=== PATIENT | male | born 1955 | race Caucasian/White ===

== ENCOUNTER 2023-10-24 07:59 | Outpatient (OUT) | payer MEDICARE, SELFPAY ==
--- NOTE | 2023-10-24 08:06 | ECG_ITS ---
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
--- NOTE | 2023-10-24 08:47 | P.GSHP_ITS ---
History of Present Illness History of Present Illness Chief complaint: elevated psa Narrative: Patient presents for preadmission testing. The patient states he had an elevated PSA and an in-office prostate biopsy which was suspicious. The patient states he has no urinary complaints. He denies nausea, vomiting, abdominal pain, difficulty starting urinary stream, incomplete bladder emptying, dysuria, hematuria, or any other complaints. Review of Systems ROS Narrative REVIEW OF SYSTEMS: Negative except as stated in HPI, ten or more systems reviewed. Constitutional: No fever , chills, weakness ENT: No sore throat or epistaxis Cardiovascular: No edema, chest pain, palpitations, or activity intolerance Respiratory: No shortness of breath, cough, or wheezing Musculoskeletal: No joint pain or swelling Gastrointestinal: No abdominal pain, constipation, diarrhea, or vomiting Genitourinary: No dysuria or hematuria Neurological: No numbness, tingling, weakness, or headache Psychiatric: No mood changes [facility] Medical History (Updated 10/24/23 @ 08:49 by Radha Land NP) Abnormal prostate biopsy ?R89.7 - Abnormal histological findings in specimens from other organs, systems and tissues (ICD-10) Tear meniscus knee ?S83.209A - Unspecified tear of unspecified meniscus, current injury, unspecified knee, initial encounter (ICD-10) COVID-19 ?U07.1 - COVID-19 (ICD-10) Vertigo ?R42 - Dizziness and giddiness (ICD-10) High cholesterol ?E78.00 - Pure hypercholesterolemia, unspecified (ICD-10) Elevated PSA ?R97.20 - Elevated prostate specific antigen [PSA] (ICD-10) Diabetes ?E11.9 - Type 2 diabetes mellitus without complications (ICD-10) Postoperative nausea and vomiting ?R11.2 - Nausea with vomiting, unspecified (ICD-10) ?Z98.890 - Other specified postprocedural states (ICD-10) Surgical History (Updated 10/24/23 @ 08:46 by Radha Land NP) H/O varicose vein ligation and stripping ?Z98.890 - Other specified postprocedural states (ICD-10) History of wisdom tooth extraction ?K08.409 - Partial loss of teeth, unspecified cause, unspecified class (ICD- 10) History of arthroscopy of knee ?Z98.890 - Other specified postprocedural states (ICD-10) History of colonoscopy ?Z98.890 - Other specified postprocedural states (ICD-10) Hx of prostate biopsy ?Z98.890 - Other specified postprocedural states (ICD-10) Family History (Updated 10/24/23 @ 08:27 by Radha Land NP) Other Family history of coronary artery disease Family history of heart disease Family history of prostate cancer Social History (Updated 10/24/23 @ 08:18 by Radha Land NP) Within the past year, how often did you have a drink containing alcohol: monthly or less Smoking status: Never smoker Non-prescribed substance use: denies use Previous occupational history: Retired Highest level of school completed/degree received: Bachelor's degree Meds Home Medications and Allergies Home Medications Medication Instructions Recorded Confirmed Type atorvastatin 10 mg tablet 10 mg PO DAILY 10/24/23 10/24/23 History glipizide 2.5 mg tablet, extended 2.5 mg PO DAILY 10/24/23 10/24/23 History release 24 hr metformin 500 mg tablet,extended 1,000 mg PO BID 10/24/23 10/24/23 History release 24 hr qzmygxkg-fc-vexab 300 mcg-K 60 1 tab PO DAILY 10/24/23 10/24/23 History mcg-lycop 600 mcg-lutein 300 mcg tablet (Centrum Silver Ultra Men's) Allergies Allergy/AdvReac Type Severity Reaction Status Date / Time Sulfa (Sulfonamide Allergy Hives Verified 10/24/23 08:16 Antibiotics) Exam Narrative Exam Narrative: Constitutional: Awake, alert, comfortable, well-appearing, nontoxic, interactive, vital signs as charted Head: Normocephalic, atraumatic Neck: Supple, normal appearance, normal range of motion, no meningeal signs, no lymphadenopathy Respiratory: No respiratory distress, breath sounds clear Cardiovascular: Regular rate and rhythm, strong and regular heart tones Abdomen: Nontender, normal bowel sounds, soft, no CVA tenderness Musculoskeletal: Normal gait, no swelling or edema Skin: No rashes or induration, no lesions, only visible skin inspected Neuro: No neurological deficits, normal sensation Psychiatric: Oriented ?3, normal affect Assessment and Plan Assessment and Plan (1) Elevated PSA: (2) Abnormal prostate biopsy: Plan TRUS/biopsy scheduled with Dr. Romero 11/06/2023.
[2023-10-24 09:16] LABS: Basophils Absolute Auto 0.1 10^3/uL (0.0-0.1); Basophils Percent Auto 1.3 % (0.2-2.0); Eosinophils Absolute Auto 0.2 10^3/uL (0.0-0.7); Eosinophils Percent Auto 4.2 % (0.9-7.0); Hematocrit 43.1 % (42.0-54.0); Hemoglobin 14.4 g/dL (14.0-18.0); Immature Granulocytes Abs Auto 0.02 10^3/uL (0.00-0.03); Immature Granulocytes Pct Auto 0.4 % (0.0-0.5); Lymphocytes Absolute Auto 1.5 10^3/uL (1.2-3.8); Lymphocytes Percent Auto 27.6 % (20.5-60.0); Mean Corpuscular HGB Conc 33.4 g/dL (29.9-35.2); Mean Corpuscular Hemoglobin 30.6 pg (25.9-34.0); Mean Corpuscular Volume 91.5 fL (80.0-94.0); Mean Platelet Volume 10.6 fL (9.5-13.5); Monocytes Absolute Auto 0.4 10^3/uL (0.3-0.8); Monocytes Percent Auto 7.5 % (1.7-12.0); Neutrophils Absolute Auto 3.2 10^3/uL (1.4-6.5); Platelet Count 205 10^3/uL (150-450); Red Blood Count 4.71 10^6/uL (4.70-6.10); Red Cell Distribution Width 11.9 % (11.0-15.0); White Blood Count 5.5 10^3/uL (4.0-11.0)
[2023-10-24 09:17] LABS: Anion Gap 9.3; Calcium 9.1 mg/dL (8.5-10.1); Carbon Dioxide 31.5 mmol/L (21.0-32.0); Chloride 101 mmol/L (98-107); Estimated GFR (African America >60 (>=60); Estimated GFR (Non-African Ame >60 (>=60); Glucose 251 mg/dL (74-106); Potassium 3.8 mmol/L (3.5-5.1); Sodium 138 mmol/L (136-145)
[2023-10-24 09:33] LABS: INR 0.95; Partial Thromboplastin Time 26.2 sec (22.3-36.2); Prothrombin Time 10.1 sec (9.0-11.6)
== END 2023-10-24 08:00 | disposition home or self-care (01) ==
LOC: PST 08:00
PROVIDERS: PCP Family Medicine; Visit Provider Urology
DX: Z01.810 Encounter for preprocedural cardiovascular examination (principal); Z01.812 Encounter for preprocedural laboratory examination; Z01.818 Encounter for other preprocedural examination; R97.20 Elevated prostate specific antigen [PSA]
CPT/HCPCS: 80048; 85025; 85610; 85730; 93005; G0463

== ENCOUNTER 2023-11-06 06:59 | Day surgery (SDC) | payer MEDICARE, SELFPAY ==
[2023-10-24 08:43] VITALS: BP 140/90; PULSE 89; RESP 14; TEMP 36.2; O2SAT 99; BMI 22.7
--- OUTSIDE RECORDS SUMMARY | 2023-11-06 07:02 | XMS_ITS | CCD ---
Author Name Unknown Address [address] [place] [address] Organization [facility] Care Team Providers Care Computer Service Technician Name Role Phone JESUS LINDA Primary Care Physician [phone] CAR[address] ., DR JESUS Armenta Primary Care Unavailable LINDA ., DR JESUS Armenta Attending Unavailable LINDA ., DR JESUS Armenta Admitting Unavailable LINDA ., DR JESUS Armenta Primary Care Unavailable DIANNE ., GABINO Attending Unavailable JEROMY .NUNU Consulting Unavailable DIANNE ., GABINO Admitting Unavailable XIOMARA RALPH Consulting Unavailable LINDA ., DR JESUS Armenta Primary Care Unavailable FIOR, DR MARYAM Bernal Consulting Unavailable LINDA ., DR JESUS Armenta Attending Unavailable LINDA ., DR JESUS Armenta Admitting Unavailable LINDA ., DR JESUS Armenta Consulting Unavailable LINDA ., DR JESUS Armenta Primary Care Unavailable LINDA ., DR JESUS Armenta Consulting Unavailable LINDA ., DR JESUS Armenta Attending Unavailable LINDA ., DR JESUS Armenta Admitting Unavailable LINDA ., DR JESUS Armenta Primary Care Unavailable LINDA ., DR JESUS Armenta Consulting Unavailable LINDA ., DR JESUS Armenta Attending Unavailable LINDA ., DR JESUS Armenta Admitting Unavailable LINDA ., DR JESUS Armenta Primary Care Unavailable LINDA ., DR JESUS Armenta Consulting Unavailable LINDA ., DR JESUS Armenta Attending Unavailable LINDA ., DR JESUS Armenta Admitting Unavailable LINDA ., DR JESUS Armenta Primary Care Unavailable LINDA ., DR JESUS Armenta Attending Unavailable LINDA ., DR JESUS Armenta Consulting Unavailable LINDA ., DR JESUS Armenta Admitting Unavailable NETO GAITAN Consulting Unavailable Shireen Bahena Primary Care Physician MD Jimmy Romero Attending Provider Yamil Imterry Attending Unavailable Kwadwo Loboad Admitting Unavailable Dada Weston Primary Care Unavailable Jimmy Romero Attending Unavailable Jimmy Romero Admitting Unavailable Dada Weston. Primary Care Physician [phone] Dada Weston MD Primary Care Provider JR. KEELY, ANTWAN Olguin Attending Unavaila casimiro FOX JR., ANTWAN Olguin Referring Unavaila casimiro FOX JR., ANTWAN Olguin Attending Unavaila Jimmy Stanford Attending Unavailable Dada Weston Attending Unavailable Dada Weston Admitting Unavailable Dada Weston Attending Unavailable Dada Weston Attending Unavailable Jimmy ROMERO Attending Unavailable ROMEROJimmy Attending Unavailable ROMEROJimmy Attending Unavailable Dada Weston Attending Unavailable Dada Weston Attending Unavailable Dada Weston Attending Unavailable Dada Weston Attending Unavailable Shruti, Shireen Godinez Attending Unavailable Shruti, Shireen Godinez Attending Unavailable Maryam DUARTE Attending Unavailable Shruti, Shireen Godinez Attending Unavailable Dada Weston Attending Unavailable Dada Weston Attending Unavailable Shruti, Shireen Godinez Attending Unavailable Jimmy ROMERO Attending Unavailable Jimmy ROMERO Attending Unavailable Dada Weston Admitting Unavailable Dada Weston Attending Unavailable Allergies Allergy Classification Reported Allergen(s) Allergy Type Date of Onset Reaction(s) Facility (5 sources) Sulfamethoxazole ; Translations: [sulfamethoxazol e] Drug Allergy [facility] (1 source) Sulfonamides (Antibiotic) Drug allergy (disorder) 4 [facility] (2 sources) Sulfonamides (Antibiotic); Translations: [Sulfa (Sulfonamide Antibiotics)] Allergy to substance 3 [facility] (3 sources) Sulfonamides (Antibiotic) Drug Allergy 4 Hives, Itching [facility] Medications Current Medications Medication Drug Class(es) Dates Sig (Normalized) Sig (Original) amoxicillin 500 mg oral capsule (1 source) Penicillin-class Antibacterial Start: 05-16-2023 End: 05-23-2023 take 1 capsule by mouth three times daily amoxicillin 500 mg Cap 500 mg = 1 cap(s), Oral, TID, X 7 day(s), # 21 cap(s), Refills(s) 0, Pharmacy: [facility], 172, cm, 05/14/23 10:47:00 EDT, Height/Length Dosing, 68.6, kg, 05/14/23 10:47:00 EDT, Weight Dosing Start Date: 05/16/23 Stop Date: 05/23/23 Status: Ordered Ascorbic Acid (4 sources) Vitamin C Start: 06-12-2020 Vitamin C Daily, Refills(s) 0 Start Date: 06/12/20 Status: Ordered atorvastatin 10 mg oral tablet (8 sources) HMG-CoA Reductase Inhibitor Start: 06-25-2018 atorvastatin (Lipitor) 10 MG tablet Take 10 mg by mouth 0 02/04/2023 Active cefuroxime 500 mg oral tablet (1 source) Cephalosporin Antibacterial Start: 05-14-2023 End: 05-21-2023 take 1 tablet by mouth twice daily cefuroxime 500 mg oral tablet 500 mg = 1 tab(s), Oral, BID, X 7 day(s), # 14 tab(s), Refills(s) 0, Pharmacy: [facility], 172, cm, 05/14/23 10:47:00 EDT, Height/Length Dosing, 68.6, kg, 05/14/23 10:47:00 EDT, Weight Dosing Start Date: 05/14/23 Stop Date: 05/21/23 Status: Ordered Centrum Silver oral tablet (4 sources) Start: 06-25-2018 take 1 tablet by mouth once daily Centrum Silver oral tablet 1 tab(s), Oral, Daily, Refill(s) 0, Prophylaxis Start Date: 06/25/18 Status: Ordered fluticasone propionate 0.05 mg/actuat metered dose nasal spray (6 sources) Corticosteroid Start: 05-14-2023 Flonase Allergy Relief 50 MCG/ACT nasal spray Administer into affected nostril(s) 0 05/14/2023 Active Start: 05-14-2023 take 2 spray(s) nasa l route once daily Flonase 0.05 mg/inh [place] 2 spray(s), Nasal, Daily, 16 gram, Refill(s) 0, each nostril, [facility], 172, cm, 05/14/23 10:47:00 EDT, Height/Length Dosing, 68.6, kg, 05/14/23 10:47:00 EDT, Weight Dosing Start Date: 05/14/23 Status: Ordered glipiZIDE er 2.5 mg 24 hr extended release oral tablet (8 sources) Sulfonylurea Start: 02-04-2023 take 1 tablet by mouth every twenty-four hours glipiZIDE XL (Glucotrol XL) 2.5 MG 24 hr tablet Take 2.5 mg by mouth 0 02/04/2023 Active Start: 06-11-2021 take 1 tablet by danyel once daily glipiZIDE 2.5 mg ER Tab 2.5 mg = 1 tab(s), Oral, Daily, # 90 tab(s), Refills(s) 3, Pharmacy: [facility], 176, cm, 06/02/23 10:01:00 EDT, Height/Length Dosing, 68.6, kg, 06/02/23 10:01:00 EDT, Weight Dosing Start Date: 07/01/23 Status: Ordered meloxicam 15 mg oral tablet (7 sources) Nonsteroidal Anti-inflammatory Drug Start: 02-13-2023 Mobic 15 MG table t Take 15 mg by mouth 0 02/13/2023 Active Start: 06-17-2022 take 15 mg by mouth once daily Mobic 15 mg, Oral, Daily Start Date: 06/17/22 Status: Ordered metFORMIN hydrochloride 500 mg oral tablet (8 sources) Biguanide Start: 07-01-2023 take 3 tablets by mouth once daily metformin 500 mg Tab 1,500 mg = 3 tab(s), Oral, Daily, # 270 tab(s), Refills(s) 3, Pharmacy: [facility], 176, cm, 06/02/23 10:01:00 EDT, Height/Length Dosing, 68.6, kg, 06/02/23 10:01:00 EDT, Weight Dosing Start Date: 07/01/23 Status: Ordered Start: 02-04-2023 metFORMIN (Glu cophage) 500 MG tablet 500 mg 0 02/04/2023 Active Start: 06-25-2018 take 3 tablets by mo [facility] once daily metformin 500 mg Tab 1,500 mg = 3 tab(s), Oral, Daily, Refills(s) 0, Blood glucose Start Date: 06/25/18 Status: Ordered Multiple Vitamins-Minerals (Centrum Silver 50+Men) tablet (3 sources) Multiple Vitamin s-Minerals (Centrum Silver 50+Men) tablet as directed Orally 0 Active Fl-Lmv-Swgto-M2-Dgkjozi-Hzgk in (Centrum Silver Men) 300-600-300 mcg Tablet (1 source) Start: 02-04-2023 take 300-600 tablets by mouth once daily Vm-Qow-Kjuwm-K8-Svpktcf-Jfs ein (Centrum Silver Men) 300-600-300 mcg Tablet Active 1 TAB PO Daily 2023 11:00pm Psyllium (3 sources) Start: 03-31-2023 Metamucil See Instructions, One tablespoon ful in a glass of water once a day, Refills(s) 0 Start Date: 03/31/23 Status: Ordered Psyllium (Metamucil) Packet (1 source) Start: 02-04-2023 take 8 [oz_av] by mouth three times daily Psyllium (Metamucil) Packet Active 1 PACKET PO Three times daily 2023 11:00pm mix into at least 8 oz of water or juice before administering Completed/Discontinued Medications Medication Drug Class(es) Dates Sig (Normalized) Sig (Original) 1 ml methylPREDNISolone acetate 40 mg/ml injection (4 sources) Corticosteroid Start: 4 End: 4 methylPREDNISolone acetate (DEPO-Medrol) injection 40 mg Problems Active Problems Problem Classification Problem Date Documented Date Episodic/Chronic Diabetes mellitus with complications (5 sources) Type 2 diabetes mellitus with unspecified complications; Translations: [TYPE 2 DM W/UNS COMPLICATIONS] Onset: 05-29-2022 Chronic Diabetes mellitus without complication (5 sources) Diabetes mellitus; Translations: [Type 2 diabetes mellitus without complications] Onset: 03-01-2022 06-25-2018 Chronic Diabetes mellitus without complication (4 sources) Glycosuria 06-14-2019 Episodic Disorders of lipid metabolism (10 sources) Hypercholesterolemia; Translations: [Hyperlipidemia] Onset: 03-01-2022 11-05-2013 Chronic E Codes: Struck by; against (1 source) Striking against or struck by other objects, initial encounter; Translations: [STRIKING AGNST/STRUCK OTH OBJ INIT] Onset: 01-06-2023 Episodic Esophageal disorders (4 sources) Gastroesophageal reflux disease; Translations: [Gastroesophageal reflux disease without esophagitis] 06-25-2018 Chronic Fracture of lower limb (1 source) Nondisplaced fracture of proximal phalanx of left great toe, initial encounter for closed fracture; Translations: [NDSPL FX PRX PHAL LT GT TOE INIT CL] Onset: 01-06-2023 Episodic Genitourinary symptoms and ill-defined conditions (5 sources) Microscopic hematuria; Translations: [Other symptoms and signs involving the genitourinary system] Onset: 07-25-2023 03-10-2019 Episodic Hyperplasia of prostate (6 sources) Benign prostatic hypertrophy with outflow obstruction; Translations: [Benign prostatic hyperplasia with lower urinary tract symptoms] Onset: 06-17-2022 Chronic Joint disorders and dislocations; trauma-related (4 sources) Other tear of medial meniscus, current injury, right knee, initial encounter; Translations: [Tear of meniscus of knee] Onset: 08-21-2022 03-31-2023 Episodic Osteoarthritis (4 sources) Unilateral primary osteoarthritis, right knee; Translations: [UNI PRIM OSTEOARTHRITIS RT KNEE] Onset: 06-26-2022 Chronic Other aftercare (1 source) Other long term acute care registered nurse (current) drug therapy; Translations: [OTH CUSTOMER OPERATIONS INTERN CURRENT DRUG THERAPY] Onset: 01-06-2023 Episodic Other aftercare (1 source) care home (current) use of oral hypoglycemic drugs; Translations: [CUSTOMER OPERATIONS INTERN USE ORAL HYPOGLYCEMIC DX] Onset: 01-06-2023 Episodic Other injuries and conditions due to external causes (3 sources) Unspecified injury of left foot, initial encounter; Translations: [UNSPECIFIED INJURY LT FOOT INITIAL] Onset: 01-05-2023 Episodic Other male genital disorders (1 source) Dysplasia of prostate; Translations: [Atypical small acinar proliferation of prostate] Onset: 07-25-2023 Episodic Other male genital disorders (2 sources) Atypical small acinar proliferation of prostate 07-25-2023 Episodic Other male genital disorders (2 sources) Disorder of prostate 07-25-2023 Episodic Other non-traumatic joint disorders (2 sources) Pain in left knee; Translations: [Pain in joint, lower leg] 09-24-2023 Episodic Other screening for suspected conditions (not mental disorders or infectious disease) (7 sources) Raised prostate specific antigen; Translations: [Elevated prostate specific antigen [PSA]] Onset: 06-17-2022 Episodic Other upper respiratory infections (3 sources) Sinusitis 05-14-2023 Chronic Otitis media and related conditions (3 sources) Otitis media 05-14-2023 Episodic Residual codes; unclassified (2 sources) Family history of cancer; Translations: [Family history of malignant neoplasm of prostate] Onset: 06-17-2022 Episodic Residual codes; unclassified (4 sources) Family history of prostate cancer 06-14-2019 Episodic Unclassified (4 sources) Uneven venous ectasia (morphologic abnormality) 11-05-2013 Unclassified (3 sources) Patient encounter status 02-13-2023 Unclassified (1 source) Encounter for screening for malignant neoplasm of colon; Translations: [Encounter for screening for malignant neoplasm of colon] Onset: 02-04-2023 Past or Other Problems Problem Classification Problem Date Documented Da te Episodic/Chronic Other male genital disorders (4 sources) Disorder of prostate, unspecified; Translations: [DISORDER OF PROSTATE UNSPECIFIED] Onset: 05-27-2022 Episodic Other non-traumatic joint disorders (4 sources) Pain in right knee; Translations: [PAIN IN RIGHT KNEE] Onset: 08-13-2022 Episodic Results Test Name Value Interpretation Reference Range Facil ity Retail - Clinical Noteon Retail - Clinical Note [id number]#1.0 0TIFF Normal [facility] ECG 12-Leadon 10-27-2023 ECG 12-Lead [id number]#1.0 0TIFF Normal [facility] Lab Reportson 10-24-2023 Lab Reports [id number]#1.0 0TIFF Normal [facility] Reminderson 10-24-2023 Reminders - From: Kimberly Lin To: EU - Recalls Romero; Cc: Kimberly Lin; Sent: 07/25/2023 10:39:02 EST Show up: 10/24/2023 10:38:00 EST Subject: TRUS/BX Due Date/Time: 11/10/2023 10:39:00 EDT Reminder/Recall Patient needs repeat TRUS/BX (mac). He wants it at [facility] in Patient sched for 11/06/23 at [facility] Consultation Noteon 10-16-19 Consultation Note [id number]#1.0 0TIFF [facility] Consent for Procedure/Surger yon 10-07-2023 Consent for Procedure/Surgery [id number] 0TIFF [facility] Ambulatory Visit Summaryon 0 09-29-2023 Ambulatory Visit Summary SANKET LOZADA :1955 Visit Date:09/29/2023 Ambulatory Visit Instructions Your Diagnosis Hypercholesterolemia Type 2 diabetes mellitus without complication, without long-term current use of insulin BMI 21.0-21.9, adult Nonsmoker Your Care Team Attending Physician - Dada Weston MD Primary Care Physician - Dada Weston MD This Is Your Medications List metformin (Glucophage XR 500 mg Tab-ER) Contact prescribing physician if questions or concerns Misc Prescription (Misc DME Prescription) Misc Prescription (Misc DME Prescription) ascorbic acid (Vitamin C) atorvastatin (atorvastatin 10 mg Tab) fluticasone nasal (Flonase 0.05 mg/inh [place]) meloxicam (Mobic 15 mg Tab) multivitamin with minerals (Centrum Silver oral tablet) psyllium (Metamucil) [Image Removed: STOP]Stop taking these medications glipiZIDE (glipiZIDE 2.5 mg ER Tab) Procedures Performed Transrectal biopsy of prostate using ultrasound guidance (07/11/2023), Colonoscopy (01/2023), Varicose vein (07/10/2018), varicose vein surgery- EVLT LGSV (12/01/2017), Stripping and ligation of great saphenous vein (01/28/2012), Arthroscopy of knee (1998), Extraction of wisdom tooth, Varicose veins. Discharge Vitals Temperature (Temporal Artery) 36.9 ?C Heart Rate (Peripheral) 90 Respiratory Rate 16 Blood Pressure 136/82 Height 176 cm Height 69 in Weight 67.4 kg Weight 148.28 lb BMI 21.76 What to do next Scheduled Follow-Up Appointments Friday. 2023 8:20 AM EDT With: Where: [facility] Invalid Interpretation Code [address] [place] [address]- \.br\ Friday 8:00 AM EDT \.br\ With:\.br\ Where: [facility] Office/Clini c Noteon 09-29-2023 Family Medicine Office/Clinic Note HPI Staff Sanket is a 68 year old male presenting for 6 month follow up dm, gerd, cholesterol Do you have any of the following symptoms? Foot Exam: none Eye Exam: UTD Last A1C: Hgb A1C %: 7.3 % High (08/20/23 08:21:00) Statin: atorvastatin 10mg Here for follow up on GERD. Melena? no Dysphagia? no Weight loss? no Persistent vomiting? no Have you ever had an EGD? no Refill needed?: no Patient is here for follow up on hyperlipidemia: Do you have side effects from the medication? no Refill needed?: no Yearly Lipid labs: 05/19/23 flu: UTD 05/30/23 questions/concerns: discuss his A1C and his diabetic meds Okay to use boost glucose control would help the A1C and his weight. Biopsy results prostate, would like to know if you've seen it discuss life screening from 2018, the aneurysm issue, family history History of Present Illness Here for follow up - BS are doing well in the low 100's. - Given up sweets - May have some ice cream Review of Systems PHQ Score Initial Depression Screen Score: 0 SCORE Physical Exam Vitals & Measurements T: 36.9 ?C(Temporal Artery) HR: 90(Peripheral) RR: 16 BP: 136/82 SpO2: 98% HT: 69 in HT: 176 cm WT: 67.4 kg WT: 148.28 lb BMI: 21.76 General: alert, no acute distress ENMT: oral mucosa moist, Cardiovascular: regular rate and rhythm, normal peripheral perfusion Respiratory: Lungs CTA, respirations non labored Extremities: no deformity, no trauma Neurological: oriented x 4, LOC appropriate for age, CN II-XII intact, motor strength equal & normal bilaterally, speech normal Abdomen: Soft, Nontender, Non-distended, + BS Assessment/Plan 1. Hypercholesterolemia (E78.00: Pure hypercholesterolemia, unspecified) - Continue on a statin Ordered: Body Mass Index (BMI) documented 3008F Current tobacco non-user 1036F Depression Screening Negative 3352F Influenza immunization administered or previously received 4274F Most recent diastolic blood pressure 80-89 mm Hg 3079F Patient screen for fall risk: no falls in last year or 1 fall with no injury in last year 1101F Systolic BP 130-139 mm Hg (Most Recent) 3075F 2. Type 2 diabetes mellitus without complication, without long-term current use of insulin (E11.9: Type 2 diabetes mellitus without complications) - Will increase the metformin and drop the glipizide - Will do A1c in 3 months Ordered: Body Mass Index (BMI) documented 3008F Current tobacco non-user 1036F Depression Screening Negative 3352F Influenza immunization administered or previously received 4274F Most recent diastolic blood pressure 80-89 mm Hg 3079F Patient screen for fall risk: no falls in last year or 1 fall with no injury in last year 1101F Systolic BP 130-139 mm Hg (Most Recent) 3075F 3. BMI 21.0-21.9, adult (Z68.21: Body mass index [BMI] 21.0-21.9, adult) - BMI education given Ordered: Body Mass Index (BMI) documented 3008F Current tobacco non-user 1036F Depression Screening Negative 3352F Influenza immunization administered or previously received 4274F Most recent diastolic blood pressure 80-89 mm Hg 3079F Patient screen for fall risk: no falls in last year or 1 fall with no injury in last year 1101F Systolic BP 130-139 mm Hg (Most Recent) 3075F 4. Nonsmoker (Z78.9: Other specified health status) - Please continue to not smoke. Ordered: Body Mass Index (BMI) documented 3008F Current tobacco non-user 1036F Depression Screening Negative 3352F Influenza immunization administered or previously received 4274F Most recent diastolic blood pressure 80-89 mm Hg 3079F Patient screen for fall risk: no falls in last year or 1 fall with no injury in last year 1101F Systolic BP 130-139 mm Hg (Most Recent) 3075F Orders: metformin, 1,000 mg = 2 tab(s), Oral, BID, # 360 tab(s), Refills(s) 1, Pharmacy: [facility], 176, cm, 09/29/23 8:34:00 EST, Height/Length Dosing, 67.4, kg, 09/29/23 8:34:00 EST, Weight Dosing Follow-up No qualifying data available Patient Education BMI for Adults 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 Elevated PSA Family history of prostate cancer Glycosuria Hypercholesterolemia Microscopic hematuria Screening for prostate cancer Tear of meniscus of right knee Type 2 diabetes mellitus without complication, without long-term current use of insulin Varicose vein Historical Hyperlipidemia Procedure/Surgical History Transrectal biopsy of prostate using ultrasound guidance (07/11/2023), Colonoscopy (01/2023), Varicose vein (07/10/2018), varicose vein surgery- EVLT LGSV (12/01/2017), Stripping and ligation of great saphenous vein (01/28/2012), Arthroscopy of knee (1998), Extraction of wisdom tooth, Varicose veins. Medications atorvastatin 10 mg Tab, 10 mg= 1 tab(s), Oral, Bedtime, 3 refills Centrum Silver oral tablet, 1 tab(s), Oral, Daily F (more content not included)... Normal [facility] Comment on above: Result Comment: Elec tronically Signed By: Enrico DOHERTY, Dada Hernandez\.br\Date and Time Signed: 09/29/23 09:11 EST Patient Educationon 09-29-19 Patient Education Nutrition BMI for Adults What is BMI? Body mass index (BMI) is a number that is calculated from a person's weight and height. BMI can help estimate how much of a person's weight is composed of fat. BMI does not measure body fat directly. Rather, it is an alternative to procedures that directly measure body fat, which can be difficult and expensive. BMI can help identify people who may be at higher risk for certain medical problems. What are BMI measurements used for? BMI is used as a screening tool to identify possible weight problems. It helps determine whether a person is obese, overweight, a healthy weight, or underweight. BMI is useful for: ? Identifying a weight problem that may be related to a medical condition or may increase the risk for medical problems. ? Promoting changes, such as changes in diet and exercise, to help reach a healthy weight. BMI screening can be repeated to see if these changes are working. How is BMI calculated? BMI involves measuring your weight in relation to your height. Both height and weight are measured, and the BMI is calculated from those numbers. This can be done either in Amharic ([place] or metric measurements. Note that charts and online BMI calculators are available to help you find your BMI quickly and easily without having to do these calculations yourself. To calculate your BMI in Amharic ([place] measurements: 1. Measure your weight in pounds (lb). 2. Multiply the number of pounds by 703. ? For example, for a person who weighs 180 lb, multiply that number by 703, which equals 126,540. 3. Measure your height in inches. Then multiply that number by itself to get a measurement called inches squared. ? For example, for a person who is 70 inches tall, the inches squared measurement is 70 inches x 70 inches, which equals 4,900 inches squared. 4. Divide the total from step 2 (number of lb x 703) by the total from step 3 (inches squared): 126,540 ? 4,900 = 25.8. This is your BMI. To calculate your BMI in metric measurements: 1. Measure your weight in kilograms (kg). 2. Measure your height in meters (m). Then multiply that number by itself to get a measurement called meters squared. ? For example, for a person who is 1.75 m tall, the meters squared measurement is 1.75 m x 1.75 m, which is equal to 3.1 meters squared. 3. Divide the number of kilograms (your weight) by the meters squared number. In this example: 70 ? 3.1 = 22.6. This is your BMI. What do the results mean? BMI charts are used to identify whether you are underweight, normal weight, overweight, or obese. The following guidelines will be used: ? Underweight: BMI less than 18.5. ? Normal weight: BMI between 18.5 and 24.9. ? Overweight: BMI between 25 and 29.9. ? Obese: BMI of 30 or above. Keep these notes in mind: ? Weight includes both fat and muscle, so someone with a muscular build, such as an athlete, may have a BMI that is higher than 24.9. In cases like these, BMI is not an accurate measure of body fat. ? To determine if excess body fat is the cause of a BMI of 25 or higher, further assessments may need to be done by a health care provider. ? BMI is usually interpreted in the same way for men and women. Where to find more information For more information about BMI, including tools to quickly calculate your BMI, go to these websites: ? Centers for Disease Control and Prevention: www.cdc.gov ? [place] [employer]: www.heart.org ? National Heart, Lung, and Blood [place]: www.nhlbi.nih.gov Summary ? Body mass index (BMI) is a number that is calculated from a person's weight and height. ? BMI may help estimate how much of a person's weight is composed of fat. BMI can help identify those who may be at higher risk for certain medical problems. ? BMI can be measured using Amharic measurements or metric measurements. ? BMI charts are used to identify whether you are underweight, normal weight, overweight, or obese. This information is not intended to replace advice given to you by your health care provider. Make sure you discuss any questions you have with your health care provider. Document Revised: 05/03/2020 Document Reviewed: 03/10/2020 Start[employer] Patient Education ? 2022 [employer]. [facility] No Panel Informationon 09-24 Tona Hugo 09/26/2023 9:14 AM L Inj/Asp: L knee on 09/24/2023 2:10 PM Indications: pain Details: 21 G needle, anterolateral approach Medications: 40 mg methylPREDNISolone acetate 40 MG/ML Outcome: tolerated well, no immediate complications UTILIZING ASEPTIC TECHNIQUE PT GIVEN INJECTION IN LEFT KNEE, NEUROVASC INTACT S/P INJ, TOLERATED WELL Procedure, treatment alternatives, risks and benefits explained, specific risks discussed. Consent was given by the patient. Formerly [facility] Ambulatory Visit Summaryon 0 09-22-2023 Ambulatory Visit Summary SANKET LOZADA :1955 Visit Date:09/22/2023 Ambulatory Visit Instructions Your Diagnosis BMI 21.0-21.9, adult Non-smoker Your Care Team Attending Physician - Dada Weston MD Primary Care Physician - Dada Weston MD This Is Your Medications List Misc Prescription ([facility]) Misc Prescription ([facility] Prescription) ascorbic acid (Vitamin C) atorvastatin (atorvastatin 10 mg Tab) fluticasone nasal (Flonase 0.05 mg/inh [place]) glipiZIDE (glipiZIDE 2.5 mg ER Tab) meloxicam (Mobic 15 mg Tab) metformin (metformin 500 mg Tab) multivitamin with minerals (Centrum Silver oral tablet) psyllium (Metamucil) Procedures Performed Transrectal biopsy of prostate using ultrasound guidance (07/11/2023), Colonoscopy (01/2023), Varicose vein (07/10/2018), varicose vein surgery- EVLT LGSV (12/01/2017), Stripping and ligation of great saphenous vein (01/28/2012), Arthroscopy of knee (1998), Extraction of wisdom tooth, Varicose veins. Discharge Vitals Heart Rate (Peripheral) 98 Blood Pressure 136/86 Height 176 cm Height 69 in Weight 67.9 kg Weight 149.38 lb BMI 21.92 What to do next Scheduled Follow-Up Appointments Friday 8:30 AM EST With: Dada Weston MD Where: [address] \.br\ Medications\.br\ What How Much When Why Instructions\.br\ Unchanged ascorbic acid (Vitamin C) Every day\.br\ Unchanged atorvastatin (atorvastatin 10 mg Tab) 1 Tablets By Mouth At bedtime\.br\ Unchanged fluticasone nasal (Flonase 0.05 mg/ inh [place]) 2 Sprays Nasal Inhalation Every day Sinusitis Left otitis media BMI 23.0-23.9, adult Non-smoker each nostril \.br\ Unchanged glipiZIDE (glipiZIDE 2.5 mg ER Tab) 1 Tablets By Mouth Every day\.br\ Unchanged meloxicam (Mobic 15 mg Tab) 15 Milligram By Mouth Every day\.br\ Unchanged metformin (metformin 500 mg Tab) 3 Tablets By Mouth Every day\.br\ Unchanged Misc Prescription ([facility] Prescription) See instructions Lancets soft twist #100 Use to test blood sugars once a day \.br\ Unchanged Misc Prescription (Misc DME Prescription) See instructions True Metrix self monitoring blood glucose test strips #100 Use to test once a day \.br\ Unchanged multivitamin with minerals (Centrum Silver oral tablet) 1 Tablets By Mouth Every day\.br\ Unchanged psyllium (Metamucil) See instructions One tablespoon ful in a glass of water once a day \.br\ Allergies\.br\ sulfamethoxazole (Hives)\.br\ Problems\.br\ Ongoing - Any problem that you are currently receiving treatment for.\.br\ Abnormal prostate exam\.br\ Atypical small acinar proliferation of prostate\.br\ BPH with urinary obstruction\.br\ Elevated PSA\.br\ Family history of prostate cancer\.br\ Glycosuria\.br\ Hypercholesterolem ia\.br\ Left otitis media\.br\ Microscopic hematuria\.br\ Screening for prostate cancer\.br\ Sinusitis\.br\ Tear of meniscus of right knee\.br\ Type 2 diabetes mellitus without complication, without long-term current use of insulin\.br\ Varicose vein\.br\ Historical - Any problem that you are no longer receiving treatment for.\.br\ Hyperlipidemia\.br \ Patient Survey\.br\ You may receive a survey via text or e-mail asking about your office visit. Please share your experience with us by completing your survey. We appreciate your feedback and thank you for choosing us for your care.\.br\ \.br\ [facility] Family [facility] Office/Clini c Noteon 09-22-2023 Family Medicine Office/Clinic Note HPI Staff Fevers: none Sinus congestion: none Sneezing: none Ear pain: Ear itching, popping, fullness, ringing, muffled hearing: popping Ear drainage: Swollen nodes: Sore throat: scratchy Ear pain worse with chewing: Itching: DIfficulty hearing: no History of Present Illness - See staff HPI Physical Exam Vitals & Measurements HR: 98(Peripheral) BP: 136/86 SpO2: 99% HT: 69 in HT: 176 cm WT: 67.9 kg WT: 149.38 lb BMI: 21.92 General: alert, no acute distress ENMT: oral mucosa moist, TMs are normal B/L Cardiovascular: regular rate and rhythm, normal peripheral perfusion Respiratory: Lungs CTA, respirations non labored Extremities: no deformity, no trauma Neurological: oriented x 4, LOC appropriate for age, CN II-XII intact, motor strength equal & normal bilaterally, speech normal Abdomen: Soft, Nontender, Non-distended, + BS Assessment/Plan 1. Eustachian tube dysfunction (H69.90: Unspecified Eustachian tube disorder, unspecified ear) Nasal saline, benardyl, flonase. If no improvement, we will send to ENT 2. BMI 21.0-21.9, adult (Z68.21: Body mass index [BMI] 21.0-21.9, adult) - BMI education given 3. Non-smoker (Z78.9: Other specified health status) - Please continue to not smoke. 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 Elevated PSA Eustachian tube dysfunction Family history of prostate cancer Glycosuria Hypercholesterolemia Left otitis media Microscopic hematuria Screening for prostate cancer Sinusitis Tear of meniscus of right knee Type 2 diabetes mellitus without complication, without long-term current use of insulin Varicose vein Historical Hyperlipidemia Procedure/Surgical History Transrectal biopsy of prostate using ultrasound guidance (07/11/2023), Colonoscopy (01/2023), Varicose vein (07/10/2018), varicose vein surgery- EVLT LGSV (12/01/2017), Stripping and ligation of great saphenous vein (01/28/2012), Arthroscopy of knee (1998), Extraction of wisdom tooth, Varicose veins. Medications atorvastatin 10 mg Tab, 10 mg= 1 tab(s), Oral, Bedtime, 3 refills Centrum Silver oral tablet, 1 tab(s), Oral, Daily Flonase 0.05 mg/inh [place], 2 spray(s), Nasal, Daily glipiZIDE 2.5 mg ER Tab, 2.5 mg= 1 tab(s), Oral, Daily, 3 refills Metamucil, See Instructions metformin 500 mg Tab, 1500 mg= 3 tab(s), Oral, Daily, 3 refills Misc DME Prescription, See Instructions, 1 refills Misc DME Prescription, See Instructions, 1 refills Mobic 15 mg Tab, 15 mg, Oral, Daily, 2 refills Vitamin C, Daily Allergies sulfamethoxazole (Hives) Social History Alcohol 1-2 times per week, 1 drinks/episode average. 2.00 drinks/episode maximum. Household alcohol concerns: No., 05/19/2023 Substance Abuse - Denies Substance Abuse, 01/15/2012 Tobacco - Denies Tobacco Use, 01/15/2012 Never (less than 100 in lifetime) Tobacco Use:. Never Smokeless Tobacco Use:. Household tobacco concerns: No. Yes, 09/22/2023 Family History Primary malignant neoplasm of prostate: Father and Brother. Immunizations Vaccine Date Status Comments influenza virus vaccine, inactivated 05/30/2023 Recorded SARS-CoV-2 (COVID-19) [id number] 08/05/2022 Recorded 2023-05-19: [id number] influenza virus vaccine, inactivated 07/11/2022 Recorded SARS-CoV-2 (COVID-19) mRNA BNT-162b2 vax 07/20/2021 Recorded 2022-06-17: TPV60 influenza virus vaccine, inactivated 06/12/2021 Recorded SARS-CoV-2 (COVID-19) mRNA BNT-162b2 vax 10/27/2020 Recorded SARS-CoV-2 (COVID-19) mRNA BNT-162b2 vax 10/06/2020 Recorded SARS-CoV-2 (COVID-19) Ad26 vaccine 08/04/2020 Recorded SARS-CoV-2 (COVID-19) Ad26 vaccine 07/07/2020 Recorded influenza virus vaccine, inactivated 06/27/2020 Recorded pneumococcal 23-valent vaccine 09/03/2016 Recorded influenza virus vaccine, inactivated 09/03/2016 Recorded Normal [facility] Comment on above: Result Comment: Elec tronically Signed By: Enrico DOHERTY, Dada Hernandez\.br\Date and Time Signed: 09/22/23 11:30 EST CHEMISTRYOrdered By: Omaira Medina on 08-20-2023 HbA1c (Bld) [Mass fraction] 7.3 % High <=5.9% [facility] ChemAutoSS [id number] 08-20-2023 HbA1c (Bld) [Mass fraction] 7.3 % High <=5.9 [facility] Comment on above: Performed By: #### [id number] #### [facility] [address] [place] [address] Nurse Consultation Noteon Nurse Consultation Note Reason for Visit here for lab draw Medications atorvastatin 10 mg Tab, 10 mg= 1 tab(s), Oral, Bedtime, 3 refills Centrum Silver oral tablet, 1 tab(s), Oral, Daily Flonase 0.05 mg/inh [place], 2 spray(s), Nasal, Daily glipiZIDE 2.5 mg ER Tab, 2.5 mg= 1 tab(s), Oral, Daily, 3 refills Metamucil, See Instructions metformin 500 mg Tab, 1500 mg= 3 tab(s), Oral, Daily, 3 refills Misc DME Prescription, See Instructions, 1 refills Misc DME Prescription, See Instructions, 1 refills Mobic 15 mg Tab, 15 mg, Oral, Daily, 2 refills Vitamin C, Daily Allergies sulfamethoxazole (Hives) Immunizations Vaccine Date Status Comments influenza virus vaccine, inactivated 05/30/2023 Recorded SARS-CoV-2 (COVID-19) [id number] 08/05/2022 Recorded 2023-05-19: TPV65 influenza virus vaccine, inactivated 07/11/2022 Recorded SARS-CoV-2 (COVID-19) mRNA BNT-162b2 vax 07/20/2021 Recorded 2022-06-17: TPV60 influenza virus vaccine, inactivated 06/12/2021 Recorded SARS-CoV-2 (COVID-19) mRNA BNT-162b2 vax 10/27/2020 Recorded SARS-CoV-2 (COVID-19) mRNA BNT-162b2 vax 10/06/2020 Recorded SARS-CoV-2 (COVID-19) Ad26 vaccine 08/04/2020 Recorded SARS-CoV-2 (COVID-19) Ad26 vaccine 07/07/2020 Recorded influenza virus vaccine, inactivated 06/27/2020 Recorded pneumococcal 23-valent vaccine 09/03/2016 Recorded influenza virus vaccine, inactivated 09/03/2016 Recorded Normal [facility] Ambulatory Visit Summaryon 1 09-25-2022 Ambulatory Visit Summary SANKET LOZADA :1955 Visit Date:07/25/2023 Ambulatory Visit Instructions Your Diagnosis Elevated PSA Atypical small acinar proliferation of prostate Abnormal prostate exam BPH with urinary obstruction Family history of prostate cancer Your Care Team Attending Physician - Jimmy ROMERO MD Primary Care Physician - Dada Weston MD This Is Your Medications List Contact prescribing physician if questions or concerns Misc Prescription (Misc DME Prescription) Misc Prescription (Misc DME Prescription) ascorbic acid (Vitamin C) atorvastatin (atorvastatin 10 mg Tab) fluticasone nasal (Flonase 0.05 mg/inh [place]) glipiZIDE (glipiZIDE 2.5 mg ER Tab) meloxicam (Mobic 15 mg Tab) metformin (metformin 500 mg Tab) multivitamin with minerals (Centrum Silver oral tablet) psyllium (Metamucil) Procedures Performed Transrectal biopsy of prostate using ultrasound guidance (07/11/2023), Colonoscopy (01/2023), Varicose vein (07/10/2018), varicose vein surgery- EVLT LGSV (12/01/2017), Stripping and ligation of great saphenous vein (01/28/2012), Arthroscopy of knee (1998), Extraction of wisdom tooth, Varicose veins. Discharge Vitals Heart Rate (Peripheral) 70 Respiratory Rate 16 Blood Pressure 128/70 Height 176 cm Height 69 in Weight 66 kg Weight 145.2 lb BMI 21.31 What to do next Scheduled Follow-Up Appointments Friday 8:30 AM EST With: Dada Weston MD Where: [place] [address]- \.br\ You Need to Schedule the Following Appointments\.br\ Follow Up with KARON DOHERTY, Jimmy Sanchez, URL When: \.br\ Where:\.br\ [facility]\.br\ [place] [address]-\.br\ Medications\.br\ What How Much When Why Instructions\.br\ Unchanged ascorbic acid (Vitamin C) Every day Contact prescribing physician if questions or concerns \.br\ Unchanged atorvastatin (atorvastatin 10 mg Tab) 1 Tablets By Mouth At bedtime Contact prescribing physician if questions or concerns \.br\ Unchanged fluticasone nasal (Flonase 0.05 mg/ inh [place]) 2 Sprays Nasal Inhalation Every day Sinusitis Left otitis media BMI 23.0-23.9, adult Non-smoker each nostril Contact prescribing physician if questions or concerns \.br\ Unchanged glipiZIDE (glipiZIDE 2.5 mg ER Tab) 1 Tablets By Mouth Every day Contact prescribing physician if questions or concerns \.br\ Unchanged meloxicam (Mobic 15 mg Tab) 15 Milligram By Mouth Every day Contact prescribing physician if questions or concerns \.br\ Unchanged metformin (metformin 500 mg Tab) 3 Tablets By Mouth Every day Contact prescribing physician if questions or concerns \.br\ Unchanged Misc Prescription (Misc DME Prescription) See instructions Lancets soft twist #100 Use to test blood sugars once a day Contact prescribing physician if questions or concerns \.br\ Unchanged Misc Prescription (Misc DME Prescription) See instructions True Metrix self monitoring blood glucose test strips #100 Use to test once a day Contact prescribing physician if questions or concerns \.br\ Unchanged multivitamin with minerals (Centrum Silver oral tablet) 1 Tablets By Mouth Every day Contact prescribing physician if questions or concerns \.br\ Unchanged psyllium (Metamucil) See instructions One tablespoon ful in a glass of water once a day Contact prescribing physician if questions or concerns \.br\ Allergies\.br\ sulfamethoxazole (Hives)\.br\ Problems\.br\ Ongoing - Any problem that you are currently receiving treatment for.\.br\ Abnormal prostate exam\.br\ Atypical small acinar proliferation of prostate\.br\ BPH with urinary obstruction\.br\ Elevated PSA\.br\ Family history of prostate cancer\.br\ Glycosuria\.br\ Hypercholesterolem ia\.br\ Left otitis media\.br\ Microscopic hematuria\.br\ Screening for prostate cancer\.br\ Sinusitis\.br\ Tear of meniscus of right knee\.br\ Type 2 diabetes mellitus without complication, without long-term current use of insulin\.br\ Varicose vein\.br\ Historical - Any problem that you are no longer receiving treatment for.\.br\ Hyperlipidemia\.br \ Patient Survey\.br\ You may receive a survey via text or e-mail asking about your office visit. Please share your experience with us by completing your survey. We appreciate your feedback and thank you for choosing us for your care.\.br\ Education Materials\.br\ Prostate Cancer Screening\.br\ \.br\ Prostate cancer screening is testing that is done to check for the presence of prostate cancer in men. The prostate gland is a walnut-sized gland that is located below the bladder and in front of the rectum in males. The function of the prostate is to add fluid to semen during ejaculation. Prostate cancer is one of the most common types of cancer in men.\.br\ Who should have prostate cancer screening?\.br\ Screening recommendations vary based on age and other risk factors, as well as between the professional organizations who make the recommendations.\. br\ In general, screening is recommended if:\.br\ ? \.br\ You are age 50 to 70 and have an average risk for prostate cancer. You should talk with your health care provider about your need for screening and how often screening should be done. Because most prostate cancers are slow growing and will not cause , screening in this age group is generally reserved for men who have a 10- to 15-year life expectancy.\.br\ ? \.br\ You are younger than age 50, and you have these risk factors:\.br\ ? \.br\ Having a father, brother, or uncle who has been diagnosed with prostate cancer. The risk is higher if your family member's cancer occurred at an early age or if you have multiple family members with prostate cancer at an early age.\.br\ ? \.br\ Being a male who is Black or is of [place] or sub-Saharan descent.\.br\ In general, screening is not recommended if:\.br\ ? \.br\ You are younger than age 40.\.br\ ? \.br\ You are between the ages of 40 and 49 and you have no risk factors.\.br\ ? \.br\ You are 70 years of age or older. At this age, the risks that screening can cause are greater than the benefits that it may provide.\.br\ If you are at high risk for prostate cancer, your health care provider may recommend that you have screenings more often or that you start screening at a younger age.\.br\ How is screening for prostate cancer done?\.br\ The recommended prostate cancer screening test is a blood test called the prostate-specific antigen (PSA) test. PSA is a protein that is made in the prostate. As you age, your prostate naturally produces more PSA. Abnormally high PSA levels may be caused by:\.br\ ? \.br\ Prostate cancer.\.br\ ? \.br\ An enlarged prostate that is not caused by cancer (benign prostatic hyperplasia, or BPH). This condition is very common in older men.\.br\ ? \.br\ A prostate gland infection (prostatitis) or urinary tract infection.\.br\ ? \.br\ Certain medicines such as male hormones (like testosterone) or other medicines that raise testosterone levels.\.br\ A rectal exam may be done as part of prostate cancer screening to help provide information about the size of your prostate gland. When a rectal exam is performed, it should be done after the PSA level is drawn to avoid any effect on the results.\.br\ Depending on the PSA results, you may need more tests, such as:\.br\ ? \.br\ A physical exam to check the size of your prostate gland, if not done as part of screening.\.br\ ? \.br\ Blood and imaging tests.\.br\ ? \.br\ A procedure to remove tissue samples from your prostate gland for testing (biopsy). This is the only way to know for certain if you have prostate cancer.\.br\ What are the benefits of prostate cancer screening?\.br\ ? \.br\ Screening can help to identify cancer at an early stage, before symptoms start and when the cancer can be treated more easily.\.br\ ? \.br\ There is a small chance that screening may lower your risk of dying from prostate cancer. The chance is small because prostate cancer is a slow-growing cancer, and most men with prostate cancer from a different cause.\.br\ What are the risks of prostate cancer screening?\.br\ The main risk of prostate cancer screening is diagnosing and treating prostate cancer that would never have caused any symptoms or problems. This is called overdiagnosisand overtreatment. PSA screening cannot tell you if your PSA is high due to cancer or a different cause. A prostate biopsy is the only procedure to diagnose prostate cancer. Even the results of a biopsy may not tell you if your cancer needs to be treated. Slow-growing prostate cancer may not need any treatment other than monitoring, so diagnosing and treating it may cause unnecessary stress or other side effects.\.br\ Questions to ask your health care provider\.br\ ? \.br\ When should I start prostate cancer screening?\.br\ ? \.br\ What is my risk for prostate cancer?\.br\ ? \.br\ How often do I need screening?\.br\ ? \.br\ What type of screening tests do I need?\.br\ ? \.br\ How do I get my test results?\.br\ [facility] Ambulatory Visit Summary SANKET LOZADA :1955 Visit Date:07/25/2023 Ambulatory Visit Instructions Your Diagnosis Elevated PSA Atypical small acinar proliferation of prostate Abnormal prostate exam BPH with urinary obstruction Family history of prostate cancer Your Care Team Attending Physician - KARON DOHERTY, Jimmy Sanchez Primary Care Physician - Dada Weston MD. This Is Your Medications List Contact prescribing physician if questions or concerns Misc Prescription (Misc DME Prescription) Misc Prescription (Misc DME Prescription) ascorbic acid (Vitamin C) atorvastatin (atorvastatin 10 mg Tab) fluticasone nasal (Flonase 0.05 mg/inh [place]) glipiZIDE (glipiZIDE 2.5 mg ER Tab) meloxicam (Mobic 15 mg Tab) metformin (metformin 500 mg Tab) multivitamin with minerals (Centrum Silver oral tablet) psyllium (Metamucil) Procedures Performed Transrectal biopsy of prostate using ultrasound guidance (07/11/2023), Colonoscopy (01/2023), Varicose vein (07/10/2018), varicose vein surgery- EVLT LGSV (12/01/2017), Stripping and ligation of great saphenous vein (01/28/2012), Arthroscopy of knee (1998), Extraction of wisdom tooth, Varicose veins. Discharge Vitals Heart Rate (Peripheral) 70 Respiratory Rate 16 Blood Pressure 128/70 Height 176 cm Height 69 in Weight 66 kg Weight 145.2 lb BMI 21.31 What to do next Scheduled Follow-Up Appointments Friday 8:30 AM EST With: Dada Weston MD Where: [facility] Normal [address] [place] [address]- \.br\ You Need to Schedule the Following Appointments\.br\ Follow Up with KARON DOHERTY, Jimmy Sanchez, URL When: \.br\ Where:\.br\ [address]\.br\ [place] [address]-\.br\ Medications\.br\ What How Much When Why Instructions\.br\ Unchanged ascorbic acid (Vitamin C) Every day Contact prescribing physician if questions or concerns \.br\ Unchanged atorvastatin (atorvastatin 10 mg Tab) 1 Tablets By Mouth At bedtime Contact prescribing physician if questions or concerns \.br\ Unchanged fluticasone nasal (Flonase 0.05 mg/ inh [place]) 2 Sprays Nasal Inhalation Every day Sinusitis Left otitis media BMI 23.0-23.9, adult Non-smoker each nostril Contact prescribing physician if questions or concerns \.br\ Unchanged glipiZIDE (glipiZIDE 2.5 mg ER Tab) 1 Tablets By Mouth Every day Contact prescribing physician if questions or concerns \.br\ Unchanged meloxicam (Mobic 15 mg Tab) 15 Milligram By Mouth Every day Contact prescribing physician if questions or concerns \.br\ Unchanged metformin (metformin 500 mg Tab) 3 Tablets By Mouth Every day Contact prescribing physician if questions or concerns \.br\ [facility] See instructions Lancets soft twist #100 Use to test blood sugars once a day Contact prescribing physician if questions or concerns \.br\ Unchanged Misc Prescription (Misc DME Prescription) See instructions True Metrix self monitoring blood glucose test strips #100 Use to test once a day Contact prescribing physician if questions or concerns \.br\ Unchanged multivitamin with minerals (Centrum Silver oral tablet) 1 Tablets By Mouth Every day Contact prescribing physician if questions or concerns \.br\ Unchanged psyllium (Metamucil) See instructions One tablespoon ful in a glass of water once a day Contact prescribing physician if questions or concerns \.br\ Allergies\.br\ sulfamethoxazole (Hives)\.br\ Problems\.br\ Ongoing - Any problem that you are currently receiving treatment for.\.br\ Abnormal prostate exam\.br\ Atypical small acinar proliferation of prostate\.br\ BPH with urinary obstruction\.br\ Elevated PSA\.br\ Family history of prostate cancer\.br\ Glycosuria\.br\ Hypercholesterolem ia\.br\ Left otitis media\.br\ Microscopic hematuria\.br\ Screening for prostate cancer\.br\ Sinusitis\.br\ Tear of meniscus of right knee\.br\ Type 2 diabetes mellitus without complication, without long-term current use of insulin\.br\ Varicose vein\.br\ Historical - Any problem that you are no longer receiving treatment for.\.br\ Hyperlipidemia\.br \ Patient Survey\.br\ You may receive a survey via text or e-mail asking about your office visit. Please share your experience with us by completing your survey. We appreciate your feedback and thank you for choosing us for your care.\.br\ Education Materials\.br\ Prostate Cancer Screening\.br\ \.br\ Prostate cancer screening is testing that is done to check for the presence of prostate cancer in men. The prostate gland is a walnut-sized gland that is located below the bladder and in front of the rectum in males. The function of the prostate is to add fluid to semen during ejaculation. Prostate cancer is one of the most common types of cancer in men.\.br\ Who should have prostate cancer screening?\.br\ Screening recommendations vary based on age and other risk factors, as well as between the professional organizations who make the recommendations.\. br\ In general, screening is recommended if:\.br\ ? \.br\ You are age 50 to 70 and have an average risk for prostate cancer. You should talk with your health care provider about your need for screening and how often screening should be done. Because most prostate cancers are slow growing and will not cause , screening in this age group is generally reserved for men who have a 10- to 15-year life expectancy.\.br\ ? \.br\ You are younger than age 50, and you have these risk factors:\.br\ ? \.br\ Having a father, brother, or uncle who has been diagnosed with prostate cancer. The risk is higher if your family member's cancer occurred at an early age or if you have multiple family members with prostate cancer at an early age.\.br\ ? \.br\ Being a male who is Black or is of Evgeny or sub-Saharan descent.\.br\ In general, screening is not recommended if:\.br\ ? \.br\ You are younger than age 40.\.br\ ? \.br\ You are between the ages of 40 and 49 and you have no risk factors.\.br\ ? \.br\ You are 70 years of age or older. At this age, the risks that screening can cause are greater than the benefits that it may provide.\.br\ If you are at high risk for prostate cancer, your health care provider may recommend that you have screenings more often or that you start screening at a younger age.\.br\ How is screening for prostate cancer done?\.br\ The recommended prostate cancer screening test is a blood test called the prostate-specific antigen (PSA) test. PSA is a protein that is made in the prostate. As you age, your prostate naturally produces more PSA. Abnormally high PSA levels may be caused by:\.br\ ? \.br\ Prostate cancer.\.br\ ? \.br\ An enlarged prostate that is not caused by cancer (benign prostatic hyperplasia, or BPH). This condition is very common in older men.\.br\ ? \.br\ A prostate gland infection (prostatitis) or urinary tract infection.\.br\ ? \.br\ Certain medicines such as male hormones (like testosterone) or other medicines that raise testosterone levels.\.br\ A rectal exam may be done as part of prostate cancer screening to help provide information about the size of your prostate gland. When a rectal exam is performed, it should be done after the PSA level is drawn to avoid any effect on the results.\.br\ Depending on the PSA results, you may need more tests, such as:\.br\ ? \.br\ A physical exam to check the size of your prostate gland, if not done as part of screening.\.br\ ? \.br\ Blood and imaging tests.\.br\ ? \.br\ A procedure to remove tissue samples from your prostate gland for testing (biopsy). This is the only way to know for certain if you have prostate cancer.\.br\ What are the benefits of prostate cancer screening?\.br\ ? \.br\ Screening can help to identify cancer at an early stage, before symptoms start and when the cancer can be treated more easily.\.br\ ? \.br\ There is a small chance that screening may lower your risk of dying from prostate cancer. The chance is small because prostate cancer is a slow-growing cancer, and most men with prostate cancer from a different cause.\.br\ What are the risks of prostate cancer screening?\.br\ The main risk of prostate cancer screening is diagnosing and treating prostate cancer that would never have caused any symptoms or problems. This is called overdiagnosisand overtreatment. PSA screening cannot tell you if your PSA is high due to cancer or a different cause. A prostate biopsy is the only procedure to diagnose prostate cancer. Even the results of a biopsy may not tell you if your cancer needs to be treated. Slow-growing prostate cancer may not need any treatment other than monitoring, so diagnosing and treating it may cause unnecessary stress or other side effects.\.br\ Questions to ask your health care provider\.br\ ? \.br\ When should I start prostate cancer screening?\.br\ ? \.br\ What is my risk for prostate cancer?\.br\ ? \.br\ How often do I need screening?\.br\ ? \.br\ What type of screening tests do I need?\.br\ ? \.br\ How do I get my test results?\.br\ [facility] Patient Educationon 07-25-20 23 Patient Education Oncology Prostate Cancer Screening Prostate cancer screening is testing that is done to check for the presence of prostate cancer in men. The prostate gland is a walnut-sized gland that is located below the bladder and in front of the rectum in males. The function of the prostate is to add fluid to semen during ejaculation. Prostate cancer is one of the most common types of cancer in men. Who should have prostate cancer screening? Screening recommendations vary based on age and other risk factors, as well as between the professional organizations who make the recommendations. In general, screening is recommended if: ? You are age 50 to 70 and have an average risk for prostate cancer. You should talk with your health care provider about your need for screening and how often screening should be done. Because most prostate cancers are slow growing and will not cause , screening in this age group is generally reserved for men who have a 10- to 15-year life expectancy. ? You are younger than age 50, and you have these risk factors: ? Having a father, brother, or uncle who has been diagnosed with prostate cancer. The risk is higher if your family member's cancer occurred at an early age or if you have multiple family members with prostate cancer at an early age. ? Being a male who is Black or is of [place]geny or sub-Saharan descent. In general, screening is not recommended if: ? You are younger than age 40. ? You are between the ages of 40 and 49 and you have no risk factors. ? You are 70 years of age or older. At this age, the risks that screening can cause are greater than the benefits that it may provide. If you are at high risk for prostate cancer, your health care provider may recommend that you have screenings more often or that you start screening at a younger age. How is screening for prostate cancer done? The recommended prostate cancer screening test is a blood test called the prostate-specific antigen (PSA) test. PSA is a protein that is made in the prostate. As you age, your prostate naturally produces more PSA. Abnormally high PSA levels may be caused by: ? Prostate cancer. ? An enlarged prostate that is not caused by cancer (benign prostatic hyperplasia, or BPH). This condition is very common in older men. ? A prostate gland infection (prostatitis) or urinary tract infection. ? Certain medicines such as male hormones (like testosterone) or other medicines that raise testosterone levels. A rectal exam may be done as part of prostate cancer screening to help provide information about the size of your prostate gland. When a rectal exam is performed, it should be done after the PSA level is drawn to avoid any effect on the results. Depending on the PSA results, you may need more tests, such as: ? A physical exam to check the size of your prostate gland, if not done as part of screening. ? Blood and imaging tests. ? A procedure to remove tissue samples from your prostate gland for testing (biopsy). This is the only way to know for certain if you have prostate cancer. What are the benefits of prostate cancer screening? ? Screening can help to identify cancer at an early stage, before symptoms start and when the cancer can be treated more easily. ? There is a small chance that screening may lower your risk of dying from prostate cancer. The chance is small because prostate cancer is a slow-growing cancer, and most men with prostate cancer from a different cause. What are the risks of prostate cancer screening? The main risk of prostate cancer screening is diagnosing and treating prostate cancer that would never have caused any symptoms or problems. This is called overdiagnosisand overtreatment. PSA screening cannot tell you if your PSA is high due to cancer or a different cause. A prostate biopsy is the only procedure to diagnose prostate cancer. Even the results of a biopsy may not tell you if your cancer needs to be treated. Slow-growing prostate cancer may not need any treatment other than monitoring, so diagnosing and treating it may cause unnecessary stress or other side effects. Questions to ask your health care provider ? When should I start prostate cancer screening? ? What is my risk for prostate cancer? ? How often do I need screening? ? What type of screening tests do I need? ? How do I get my test results? ? What do my results mean? ? Do I need treatment? Where to find more information ? [employer] [place] [employer]: www.cancer.org ? [employer]: www.auanet.org Contact a health care provider if: ? You have difficulty urinating. ? You have pain when you urinate or ejaculate. ? You have blood in your urine or semen. ? You have pain in your back or in the area of your prostate. Summary ? Prostate cancer is a common type of cancer in men. The prostate gland is located below the bladder and in front of the rectum. This gland adds flu (more content not included)... Normal [facility] Urology Office/Clinic Noteon 07-25-2023 Urology Office/Clinic Note Chief Complaint S/P TRUS/Bx HPI Staff S/P TRUS/Bx done 07/11/23 Pt is here today to review results DX: BPH, Elevated PSA & Family Hx of Prostate Cancer *No Urology Meds Last PSA 05/19/23- 2.7. blood tinged urine for 4 days post op. Has since then subsided. Denies current pain, burning and blood in urine. Denies any discomfort. History of Present Illness Tests reviewed: reviewed path report. I have reviewed the previous health record information and history for this patient from Dr. Romero. I have reviewed and verified the staff HPI to be accurate for this encounter. There have been no associated fever, chills, flank pain, or blood in the urine. Denies any urinary infections since last encounter. Review of Systems PHQ Score Initial Depression Screen Score: 0 SCORE ROS - Provider Constitutional: denies weight loss, denies hot flashes. Eyes: denies eye problems. Gastrointestinal: denies nausea, denies vomiting. Cardiovascular: denies chest pain or angina. Integumentary: no dryness Musculoskeletal: denies musculoskeletal symptoms. ENMT: denies otolaryngeal symptoms. Respiratory: no shortness of breath. Heme/Lymph: denies easy bleeding tendency, denies easy bruising tendency. Psychiatric: no confusion, no anxiety. Genitourinary: See HPI. Physical Exam Vitals & Measurements HR: 70(Peripheral) RR: 16 BP: 128/70 HT: 69 in HT: 176 cm WT: 66 kg WT: 145.2 lb BMI: 21.31 General Appearance: alert, no distress, well nourished, well developed male. Genitourinary: normal scrotum, normal testes, normal urethra, normal epididymis, normal vas deferens/spermatic cord. Flank Pain: none. Bladder: nonpalpable. Assessment/Plan Pt here with today 1. Elevated PSA (R97.20: Elevated prostate specific antigen [PSA]) PSA: 04/07/21 - 2.68 05/27/22 - 2.88 05/19/23 - 2.70 S/p TRUS/bx 07/11/23. Rufus tinged urine for a few days following procedure. Pt states he did not tolerate procedure well. No other issues. Path reveals HGPIN and LISSETTE suspicious for early adenocarcinoma. No evidence of prostate cancer. Results reviewed with pt and his . Repeat bx is indicated within the next 6 months due to LISSETTE findings. Offered repeat bx under twilight anesthesia. -Repeat bx spring of next year under twilight anesthesia 2. 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 Abnormal prostate exam (R39.89: Other symptoms and signs involving the genitourinary system) SYLVIE 06/02/23: 40 gms, Rt side of prostate is larger than Lt side, induration of the Rt side. 4. BPH with urinary obstruction (N40.1: Benign prostatic hyperplasia with lower urinary tract symptoms) No UA provided today. Pt is currently not on any BPH medications at this time. Denies issues with urination at this time. 5. Family history of prostate cancer (Z80.42: Family history of malignant neoplasm of prostate) Father and brother. Follow-up With When Contact Information KARON DOHERTY, Jimmy Sanchez, URL [address] [place] [address]- Additional Instructions: Repeat bx spring 2024 Patient Education Prostate Cancer Screening I, Yamile Nicholson, personally scribed for Dr. Romero on 07/25/2023 10:20:36. . Documentation recorded by the scribe, Yamile Nicholson, accurately reflects the services(s) I performed and decisions made by me. Authenticated by Dr. Romero on 07/25/2023 10:30:52. 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 Elevated PSA Family history of prostate cancer Glycosuria Hypercholesterolemia Left otitis media Microscopic hematuria Screening for prostate cancer Sinusitis Tear of meniscus of right knee Type 2 diabetes mellitus without complication, without long-term current use of insulin Varicose vein Historical Hyperlipidemia Procedure/Surgical History Transrectal biopsy of prostate using ultrasound guidance (07/11/2023), Colonoscopy (01/2023), Varicose vein (07/10/2018), varicose vein surgery- EVLT LGSV (12/01/2017), Stripping and ligation of great saphenous vein (01/28/2012), Arthroscopy of knee (1998), Extraction of wisdom tooth, Varicose veins. Medications atorvastatin 10 mg Tab, 10 mg= 1 tab(s), Oral, Bedtime, 3 refills Centrum Silver oral tablet, 1 tab(s), Oral, Daily Flonase 0.05 mg/inh [place], 2 spray(s), Nasal, Daily glipiZIDE 2.5 mg ER Tab, 2.5 mg= 1 tab(s), Oral, Daily, 3 refills Metamucil, See Instructions metformin 500 mg Tab, 1500 mg= 3 tab(s), Oral, Daily, 3 refills Misc DME Prescription, See Instructions, 1 refills Misc DME Prescription, See Instructions, 1 refills Mobic 15 mg Tab, 15 mg, Oral, Daily, 2 refills Vitamin C, Daily Allergies sulfamethoxazole (Hives) Social History Alcohol 1-2 times per week, 1 drinks/episode averag (more content not included)... Normal [facility] Comment on above: Result Comment: Elec tronically Signed By: KARON DOHERTY, Jimmy Sanchze\.carl\Date and Time Signed: 07/25/23 10:30 EST\.br\Electronically Co-Signed By: Yamile Nicholson\Date and Time Co-Signed: 07/25/23 10:26 EST Pathology Noteon 07-22-2023 Pathology Note [id number] 0TIFF Normal [facility] Operative Reporton Operative Report [id number]. 00TIFF Normal [facility] 07-11-2023 L -- ---- Specimen: [id number] Received: 07/11/23 Status: IRINA Posadas Num: [id number] Spec Type: Surgical Subm Dr: Jimmy Romero MD Tissues: A Prostate - Needle Biopsy (L1) B Prostate - Needle Biopsy (L2) C Prostate - Needle Biopsy (L3) D Prostate - Needle Biopsy (L4) E Prostate - Needle Biopsy (R1) F Prostate - Needle Biopsy (R2) G Prostate - Needle Biopsy (R3) H Prostate - Needle Biopsy (R4) Procedures: HE/16, Gross/Micro L4/8, PIN Cocktail/8 ---- Age/ Patient Sex Location Account Attending Physician ---- Sanket Lozada 68/M LENA [id number] Jimmy Romero MD ---- SPEC NUM: [id number] RECD: 07/11/23 STATUS: IRINA POSADAS NUM: [id number] CHAVO: 07/11/23- SUBM DR: Jimmy Romero MD ENTERED: 07/11/[address]: Tiago [facility] SPEC TYPE: Surgical DEPT: S ORDERED: HE/16, Gross/Micro L4/8, PIN Cocktail/8 ORDERED: HE/16, Gross/Micro L4/8, PIN Cocktail/8, USS/8 Pathological Diagnosis A. Prostate biopsy, L1: - Benign prostate tissue with small foci of partial atypical change - PIN cocktail immunostain is also reviewed with findings also supporting the above interpretation B. Prostate biopsy, L2: - Prostatic tissue with 1 large focus of adenomatous hyperplasia, 1 tiny focus of low- grade PIN, and 1 other small focus of atypical adenomatous hyperplasia - PIN cocktail immunostain is also reviewed with findings also supporting the above interpretation C. Prostate biopsy, L3: - Benign prostate tissue with nodular glandular hyperplasia including patchy small foci of adenomatous hyperplasia - PIN cocktail immunostain is also reviewed with findings also supporting the above ---- Specimen: [id number] Received: 07/11/23 Status: BRIANHéctor Posadas Num: [id number] Spec Type: Surgical Subm Dr: Jimmy Romero MD Tissues: A Prostate - Needle Biopsy (L1) B Prostate - Needle Biopsy (L2) C Prostate - Needle Biopsy (L3) D Prostate - Needle Biopsy (L4) E Prostate - Needle Biopsy (R1) F Prostate - Needle Biopsy (R2) G Prostate - Needle Biopsy (R3) H Prostate - Needle Biopsy (R4) Procedures: HE/16, Gross/Micro L4/8, PIN Cocktail/8 ---- Patient: Sanket Lozada [id number] (Continued) ---- Specimen: [id number] Received: 07/11/23 (Continued) Pathological Diagnosis (Continued) Signed (signature on file) Ignacia Man MD 07/16/232050 ---- Specimen: [id number] Received: 07/11/23 Status: IRINA Posadas Num: [id number] Spec Type: Surgical Subm Dr: Jimmy Romero MD Tissues: A Prostate - Needle Biopsy (L1) B Prostate - Needle Biopsy (L2) C Prostate - Needle Biopsy (L3) D Prostate - Needle Biopsy (L4) E Prostate - Needle Biopsy (R1) F Prostate - Needle Biopsy (R2) G Prostate - Needle Biopsy (R3) H Prostate - Needle Biopsy (R4) Procedures: HE/16, Gross/Micro L4/8, PIN Cocktail/8 ---- Patient: LozadaSanket ren Lupe [id number] (Continued) ---- Specimen: [id number] Received: 07/11/23-1241 (Continued) Pathological Diagnosis (Continued) interpretation D. Prostate biopsy, L4: - Benign prostate tissue with 2 small foci of low-grade PIN - PIN cocktail immunostain is also reviewed with findings also supporting the above interpretation E. Prostate biopsy, R1: - Benign prostate tissue with multiple nodular glandular hyperplasia and adenomatous hyperplasia, and 2 small foci of partial atrophic change at 1 end of each fragment with the rare associated small atypical reactive glands - PIN cocktail immunostain is also reviewed with findings also supporting the above interpretation F. Prostate biopsy, R2: - Prostate tissue with patchy foci of atypical adenomatous hyperplasia, and 2 other small foci of partial atrophic pattern with the rare associated small atypical reactive glands - PIN cocktail immunostain is also reviewed with findings also supporting the above interpretation G. Prostate biopsy, R3: - Prostate tissue with mild nodular glandular hyperplasia including occasional atypical adenomato (more content not included)... [facility] Ambulatory Visit Summaryon 1 Ambulatory Visit Summary SANKET LOZADA :1955 Visit Date:06/02/2023 Ambulatory Visit Instructions Your Diagnosis BPH with urinary obstruction Elevated PSA Family history of prostate cancer Tests Performed Urnls Dip Stick Auto w/o Microscopy POC 54969 Your Care Team Attending Physician - Jimmy ROMERO MD Primary Care Physician - Dada Weston MD This Is Your Medications List ciprofloxacin (Cipro 500 mg Tab) Contact prescribing physician if questions or concerns Misc Prescription (Misc DME Prescription) Misc Prescription (Misc DME Prescription) ascorbic acid (Vitamin C) atorvastatin (atorvastatin 10 mg Tab) fluticasone nasal (Flonase 0.05 mg/inh [place]) glipiZIDE (glipiZIDE 2.5 mg ER Tab) meloxicam (Mobic 15 mg Tab) metformin (metformin 500 mg Tab) multivitamin with minerals (Centrum Silver oral tablet) psyllium (Metamucil) Procedures Performed Colonoscopy (01/2023), Varicose vein (07/10/2018), varicose vein surgery- EVLT LGSV (12/01/2017), Stripping and ligation of great saphenous vein (01/28/2012), Arthroscopy of knee (1998), Extraction of wisdom tooth, Varicose veins. Discharge Vitals Heart Rate (Peripheral) 70 Respiratory Rate 16 Blood Pressure 127/86 Height 176 cm Height 69 in Weight 68.6 kg Weight 150.92 lb BMI 22.15 What to do next Scheduled Follow-Up Appointments Friday 9:40 AM EST With: Dada Weston MD Where: [facility] Normal [address] [place] [address]- \.br\ You Need to Schedule the Following Appointments\.br\ Follow Up with KARON DOHERTY, Jimmy Sanchez, URL When: \.br\ Comments:\.br\ Sched Transrectal US of Prostate w/ Biopsy\.br\ Where:\.br\ [facility] [address]br\ [place] [address]-\.br\ Medications\.br\ What How Much When Why Instructions\.br\ New ciprofloxacin (Cipro 500 mg Tab) 1 Tablets By Mouth 2 times a day Duration: 1 Weeks Pickup at [facility]\.br\ Unchanged ascorbic acid (Vitamin C) Every day Contact prescribing physician if questions or concerns \.br\ Unchanged atorvastatin (atorvastatin 10 mg Tab) 1 Tablets By Mouth At bedtime Contact prescribing physician if questions or concerns \.br\ Unchanged fluticasone nasal (Flonase 0.05 mg/ inh [place]) 2 Sprays Nasal Inhalation Every day Sinusitis Left otitis media BMI 23.0-23.9, adult Non-smoker each nostril Contact prescribing physician if questions or concerns \.br\ Unchanged glipiZIDE (glipiZIDE 2.5 mg ER Tab) By Mouth Every day Contact prescribing physician if questions or concerns \.br\ Unchanged meloxicam (Mobic 15 mg Tab) 15 Milligram By Mouth Every day Contact prescribing physician if questions or concerns \.br\ Unchanged metformin (metformin 500 mg Tab) 3 Tablets By Mouth Every day Contact prescribing physician if questions or concerns \.br\ Unchanged Misc Prescription (Misc DME Prescription) See instructions Lancets soft twist #100 Use to test blood sugars once a day Contact prescribing physician if questions or concerns \.br\ Unchanged Misc Prescription (Misc DME Prescription) See instructions True Metrix self monitoring blood glucose test strips #100 Use to test once a day Contact prescribing physician if questions or concerns \.br\ Unchanged multivitamin with minerals (Centrum Silver oral tablet) 1 Tablets By Mouth Every day Contact prescribing physician if questions or concerns \.br\ Unchanged psyllium (Metamucil) See instructions One tablespoon ful in a glass of water once a day Contact prescribing physician if questions or concerns \.br\ Pharmacy Information\.br\ [facility]: [address], [place] [id number] [phone]\.br\ Test Results\.br\ Urnls Dip Stick Auto w/o Microscopy POC 58269 (06/02/2023)\.br\ Bilirubin Urine Dipstick - Negative\.br\ Blood Urine Dipstick - Trace-intact\.br\ Glucose Urine Dipstick - Negative\.br\ Ketones Urine Dipstick - Negative\.br\ Leukocytes Urine Dipstick - Negative\.br\ Nitrite Urine Dipstick - Negative\.br\ Protein Urine Dipstick - Negative\.br\ Specific [place] Urine Dipstick - 1.020\.br\ Urine Appearance Urine Dipstick - Clear\.br\ Urine Color Urine Dipstick - Yellow\.br\ Urobilinogen Urine Dipstick - Normal 0.2-1 EU/dl\.br\ pH Urine Dipstick - 5.5\.br\ Allergies\.br\ sulfamethoxazole (Hives)\.br\ Problems\.br\ Ongoing - Any problem that you are currently receiving treatment for.\.br\ BPH with urinary obstruction\.br\ Elevated PSA\.br\ Family history of prostate cancer\.br\ Glycosuria\.br\ Hypercholesterolem ia\.br\ Left otitis media\.br\ Microscopic hematuria\.br\ Screening for prostate cancer\.br\ Sinusitis\.br\ Tear of meniscus of right knee\.br\ Type 2 diabetes mellitus without complication, without long-term current use of insulin\.br\ Varicose vein\.br\ Historical - Any problem that you are no longer receiving treatment for.\.br\ Hyperlipidemia\.br \ Education Materials\.br\ Benign Prostatic Hyperplasia\.br\ \.br\ Benign prostatic hyperplasia (BPH) is an enlarged prostate gland that is caused by the normal aging process. The prostate may get bigger as a man gets older. The condition is not caused by cancer. The prostate is a walnut-sized gland that is involved in the production of semen. It is located in front of the rectum and below the bladder. The bladder stores urine. The urethra carries stored urine out of the body.\.br\ An enlarged prostate can press on the urethra. This can make it harder to pass urine. The buildup of urine in the bladder can cause infection. Back pressure and infection may progress to bladder damage and kidney (renal) failure.\.br\ What are the causes?\.br\ This condition is part of the normal aging process. However, not all men develop problems from this condition. If the prostate enlarges away from the urethra, urine flow will not be blocked. If it enlarges toward the urethra and compresses it, there will be problems passing urine.\.br\ What increases the risk?\.br\ This condition is more likely to develop in men older than 50 years.\.br\ What are the signs or symptoms?\.br\ Symptoms of this condition include:\.br\ ? \.br\ Getting up often during the night to urinate.\.br\ ? \.br\ Needing to urinate frequently during the day.\.br\ ? \.br\ Difficulty starting urine flow.\.br\ ? \.br\ Decrease in size and strength of your urine stream.\.br\ ? \.br\ Leaking (dribbling) after urinating.\.br\ ? \.br\ Inability to pass urine. This needs immediate treatment.\.br\ ? \.br\ Inability to completely empty your bladder.\.br\ ? \.br\ Pain when you pass urine. This is more common if there is also an infection.\.br\ ? \.br\ Urinary tract infection (UTI).\.br\ How is this diagnosed?\.br\ This condition is diagnosed based on your medical history, a physical exam, and your symptoms. Tests will also be done, such as:\.br\ ? \.br\ A post-void bladder scan. This measures any amount of urine that may remain in your bladder after you finish urinating.\.br\ ? \.br\ A digital rectal exam. In a rectal exam, your health care provider checks your prostate by putting a lubricated, gloved finger into your rectum to feel the back of your prostate gland. This exam detects the size of your gland and any abnormal lumps or growths.\.br\ ? \.br\ An exam of your urine (urinalysis).\.br\ ? \.br\ A prostate specific antigen (PSA) screening. This is a blood test used to screen for prostate cancer.\.br\ ? \.br\ An ultrasound. This test uses sound waves to electronically produce a picture of your prostate gland.\.br\ Your health care provider may refer you to a specialist in kidney and prostate diseases (urologist).\.br\ How is this treated?\.br\ Once symptoms begin, your health care provider will monitor your condition (active surveillance or watchful waiting). Treatment for this condition will depend on the severity of your condition. Treatment may include:\.br\ ? \.br\ Observation and yearly exams. This may be the only treatment needed if your condition and symptoms are mild.\.br\ ? \.br\ Medicines to relieve your symptoms, including:\.br\ ? \.br\ Medicines to shrink the prostate.\.br\ ? \.br\ Medicines to relax the muscle of the prostate.\.br\ ? \.br\ Surgery in severe cases. Surgery may include:\.br\ ? \.br\ Prostatectomy. In this procedure, the prostate tissue is removed completely through an open incision or with a laparoscope or robotics.\.br\ ? \.br\ Transurethral resection of the prostate (TURP). In this procedure, a tool is inserted through the opening at the tip of the penis (urethra). It is used to cut away tissue of the inner core of the prostate. The pieces are removed through the same opening of the penis. This removes the blockage.\.br\ ? \.br\ Transurethral incision (TUIP). In this procedure, small cuts are made in the prostate. This lessens the prostate's pressure on the urethra.\.br\ ? \.br\ Transurethral microwave thermotherapy (TUMT). This proced [facility] Consent for Procedure/Surger yon 06-02-2023 Consent for Procedure/Surgery [id number] Normal [facility] Patient Educationon 06-02-20 23 Patient Education Benign Prostatic Hyperplasia Benign prostatic hyperplasia (BPH) is an enlarged prostate gland that is caused by the normal aging process. The prostate may get bigger as a man gets older. The condition is not caused by cancer. The prostate is a walnut-sized gland that is involved in the production of semen. It is located in front of the rectum and below the bladder. The bladder stores urine. The urethra carries stored urine out of the body. An enlarged prostate can press on the urethra. This can make it harder to pass urine. The buildup of urine in the bladder can cause infection. Back pressure and infection may progress to bladder damage and kidney (renal) failure. What are the causes? This condition is part of the normal aging process. However, not all men develop problems from this condition. If the prostate enlarges away from the urethra, urine flow will not be blocked. If it enlarges toward the urethra and compresses it, there will be problems passing urine. What increases the risk? This condition is more likely to develop in men older than 50 years. What are the signs or symptoms? Symptoms of this condition include: ? Getting up often during the night to urinate. ? Needing to urinate frequently during the day. ? Difficulty starting urine flow. ? Decrease in size and strength of your urine stream. ? Leaking (dribbling) after urinating. ? Inability to pass urine. This needs immediate treatment. ? Inability to completely empty your bladder. ? Pain when you pass urine. This is more common if there is also an infection. ? Urinary tract infection (UTI). How is this diagnosed? This condition is diagnosed based on your medical history, a physical exam, and your symptoms. Tests will also be done, such as: ? A post-void bladder scan. This measures any amount of urine that may remain in your bladder after you finish urinating. ? A digital rectal exam. In a rectal exam, your health care provider checks your prostate by putting a lubricated, gloved finger into your rectum to feel the back of your prostate gland. This exam detects the size of your gland and any abnormal lumps or growths. ? An exam of your urine (urinalysis). ? A prostate specific antigen (PSA) screening. This is a blood test used to screen for prostate cancer. ? An ultrasound. This test uses sound waves to electronically produce a picture of your prostate gland. Your health care provider may refer you to a specialist in kidney and prostate diseases (urologist). How is this treated? Once symptoms begin, your health care provider will monitor your condition (active surveillance or watchful waiting). Treatment for this condition will depend on the severity of your condition. Treatment may include: ? Observation and yearly exams. This may be the only treatment needed if your condition and symptoms are mild. ? Medicines to relieve your symptoms, including: ? Medicines to shrink the prostate. ? Medicines to relax the muscle of the prostate. ? Surgery in severe cases. Surgery may include: ? Prostatectomy. In this procedure, the prostate tissue is removed completely through an open incision or with a laparoscope or robotics. ? Transurethral resection of the prostate (TURP). In this procedure, a tool is inserted through the opening at the tip of the penis (urethra). It is used to cut away tissue of the inner core of the prostate. The pieces are removed through the same opening of the penis. This removes the blockage. ? Transurethral incision (TUIP). In this procedure, small cuts are made in the prostate. This lessens the prostate's pressure on the urethra. ? Transurethral microwave thermotherapy (TUMT). This procedure uses microwaves to create heat. The heat destroys and removes a small amount of prostate tissue. ? Transurethral needle ablation (TUNA). This procedure uses radio frequencies to destroy and remove a small amount of prostate tissue. ? Interstitial laser coagulation (ILC). This procedure uses a laser to destroy and remove a small amount of prostate tissue. ? Transurethral electrovaporization (TUVP). This procedure uses electrodes to destroy and remove a small amount of prostate tissue. ? Prostatic urethral lift. This procedure inserts an implant to push the lobes of the prostate away from the urethra. Follow these instructions at home: ? Take nlgb-vve-eujpjfs and prescription medicines only as told by your health care provider. ? Monitor your symptoms for any changes. Contact your health care provider with any changes. ? Avoid drinking large amounts of liquid before going to bed or out in public. ? Avoid or reduce how much caffeine or alcohol you drink. ? Give yourself time when you urinate. ? Keep all follow-up visits. This is important. Contact a health care provider if: ? You have unexplained back pain. ? Your symptoms do not get better with treatment. ? You develop side effects from the medicine you are t (more content not included)... Normal [facility] Urology Office/Clinic Noteon 06-02-2023 Urology Office/Clinic Note Chief Complaint elevated PSA, family hx of prostate cancer HPI Staff Former RWR pt Here today for 1yr PSA DX: BPH. Elevated PSA, Family Hx of Prostate Cancer (Father & Brother) *No Urology Medications PSA 05/19/23- 2.7 Dysuria: no Incomplete bladder emptying: no Hematuria: no Frequency: no Urgency: no Nocturia: pt does not always get up Stream: a little slower stream first void in the morning but then gets better. No straining or intermittency Leaking: no Post void dripping: no Wearing pads/ Depends: no Urge incontinence: no Stress incontinence: no Incontinence without Sensory Awareness: no Abdominal pain: no Flank pain: no Sexual complaints: no History of Present Illness Tests reviewed: reviewed UA and PSA. I have reviewed the previous health record information and history for this patient from . I have reviewed and verified the staff HPI to be accurate for this encounter. There have been no associated fever, chills, flank pain, or blood in the urine. Denies any urinary infections since last encounter. Review of Systems PHQ Score Initial Depression Screen Score: 0 ROS - Provider Constitutional: denies weight loss, denies hot flashes. Eyes: denies eye problems. Gastrointestinal: denies nausea, denies vomiting. Cardiovascular: denies chest pain or angina. Integumentary: no dryness Musculoskeletal: denies musculoskeletal symptoms. ENMT: denies otolaryngeal symptoms. Respiratory: no shortness of breath. Heme/Lymph: denies easy bleeding tendency, denies easy bruising tendency. Psychiatric: no confusion, no anxiety. Genitourinary: See HPI. Physical Exam Vitals & Measurements HR: 70(Peripheral) RR: 16 BP: 127/86 HT: 69 in HT: 176 cm WT: 68.6 kg WT: 150.92 lb BMI: 22.15 General Appearance: alert, no distress, well nourished, well developed male. Genitourinary: normal scrotum, normal testes, normal urethra, normal epididymis, normal vas deferens/spermatic cord. Flank Pain: none. Bladder: nonpalpable. Prostate: abnormal prostate, Rt side is larger than the Lt side, estimated weight 40 gms, yes hard nodule observed, induration on the Rt side.. Assessment/Plan 1. BPH with urinary obstruction (N40.1: Benign prostatic hyperplasia with lower urinary tract symptoms) UA today shows trace-intact blood and no signs of infection. Pt is currently not on any BPH medications at this time. SYLVIE: 40 gms, Rt side of prostate is larger than Lt side, induration of the Rt side. Pt states that his first void of the morning, his stream is weak, normal throughout the rest of the day, feels empty, has frequency, believes this is due to the amount of water he drinks. Overall pt is doing well and have no urinary complaints at this time. -See #2 2. Elevated PSA (R97.20: Elevated prostate specific antigen [PSA]) PSA 08/14/21 - 2.68 05/27/22 - 2.88 05/19/23 - 2.70 Discussed PSA level with pt, decreased from previous, within absolute normal range. Advised with the level at his age and the results noted from SYLVIE today, it is recommended to get a Transrectal Prostate US/bx. Will continue to monitor. -Will schedule Transrectal US of Prostate with Biopsy. The procedural risks, benefits, details, and treatment alternatives have been discussed with the patient. These include minimal to severe bleeding, infection, blood in the semen, inability to urinate, and severe infection requiring hospitalization and IV antibiotics, among others. Full informed consent has been obtained. Will order Local anesthesia. -See #1 3. Family history of prostate cancer (Z80.42: Family history of malignant neoplasm of prostate) Father and brother Follow-up With When Contact Information KARON DOHERTY, Jimmy Sanchez, URL [facility] [address], [place] [address]- Additional Instructions: Sched Transrectal US of Prostate w/ Biopsy Patient Education Benign Prostatic Hyperplasia I, Rukhsana Tao , personally scribed for Dr. Romero on 06/02/2023 10:51:07. . Documentation recorded by the scribe, Rukhsana Tao, accurately reflects the services(s) I performed and decisions made by me. Problem List/Past Medical History Ongoing BPH with urinary obstruction Elevated PSA Family history of prostate cancer Glycosuria Hypercholesterolemia Left otitis media Microscopic hematuria Screening for prostate cancer Sinusitis Tear of meniscus of right knee Type 2 diabetes mellitus without complication, without long-term current use of insulin Varicose vein Historical Hyperlipidemia Procedure/Surgical History Colonoscopy (01/2023), Varicose vein (07/10/2018), varicose vein surgery- [facility] LGSV (12/01/2017), Stripping and ligation of great saphenous vein (01/28/2012), Arthroscopy of knee (1998), Extraction of wisdom tooth, Varicose veins. Medications atorvastatin 10 mg Tab, 10 mg= 1 tab(s), Oral, Bedtime Centrum Silve (more content not included)... Normal [facility] Comment on above: Result Comment: Elec tronically Signed By: KARON DOHERTY, Jimmy Sanchez\.br\Date and Time Signed: 06/02/23 10:54 EDT\.br\Electronically Co-Signed By: Rukhsana Tao\.br\Date and Time Co-Signed: 06/02/23 10:51 EDT Ambulatory Visit Summaryon 0 05-19-2023 Ambulatory Visit Summary SANKET LOZADA :1955 Visit Date:05/19/2023 Ambulatory Visit Instructions Your Diagnosis Annual visit for general adult medical examination without abnormal findings Hypercholesterolemia Type 2 diabetes mellitus without complication, without long-term current use of insulin BPH with urinary obstruction Sinusitis Left otitis media Body mass index [BMI] 22.0-22.9, adult Your Care Team Attending Physician - Shireen Artis Primary Care Physician - Shireen Artis This Is Your Medications List Misc Prescription (Misc DME Prescription) Misc Prescription (Misc DME Prescription) amoxicillin (amoxicillin 500 mg Cap) ascorbic acid (Vitamin C) atorvastatin (atorvastatin 10 mg Tab) cefuroxime (cefuroxime 500 mg oral tablet) fluticasone nasal (Flonase 0.05 mg/inh [place]) glipiZIDE (glipiZIDE 2.5 mg ER Tab) meloxicam (Mobic 15 mg Tab) metformin (metformin 500 mg Tab) multivitamin with minerals (Centrum Silver oral tablet) psyllium (Metamucil) Procedures Performed Colonoscopy (01/2023), Varicose vein (07/10/2018), varicose vein surgery- [facility] LGSV (12/01/2017), Stripping and ligation of great saphenous vein (01/28/2012), Arthroscopy of knee (1998), Extraction of wisdom tooth, Varicose veins. Discharge Vitals Heart Rate (Peripheral) 91 Blood Pressure 132/84 Height 174 cm Height 69 in Weight 68 kg Weight 149.6 lb BMI 22.46 What to do next Scheduled Follow-Up Appointments Friday 9:45 AM EDT With: Jimmy ROMERO MD Where: [facility] Invalid Interpretation Code [address] [place] [address]- \.br\ Sergio Sep. 30, 2024 8:00 AM EDT \.br\ With:\.br\ Where: [facility] CHEMISTRYOrdered By: SYSTEM SYSTEM on 05-19-2023 Albumin [Mass/Vol] 4.3 g/dL Normal 3.3 - 5.0 gm/dL F [facility] Albumin/Globulin [Mass ratio] 1.4 {ratio} Normal 1.1 - 2.2 [facility] ALP [Catalytic activity/Vol] 77 [iU]/d Normal 21 - 98 Int._Unit/L [facility] ALT No additional P-5'-P [Catalytic activity/Vol] 31 [iU]/d Normal 6 - 46 Int._Unit/L [facility] Anion gap [Moles/Vol] 13 mmol/L Normal 6 - 16 mEq/L [facility] AST [Catalytic activity/Vol] 30 [iU]/d Normal 5 - 43 Int._Unit/L [facility] Bilirubin [Mass/Vol] 0.7 mg/dL Normal 0.0 - 1.1 mg/dL [facility] Calcium [Mass/Vol] 10.0 mg/dL Normal 8.9 - 11.1 mg/dL [facility] Chloride [Moles/Vol] 104 mmol/L Normal 101 - 111 mmol/L [facility] Cholesterol [Mass/Vol] 184 mg/dL Normal 120 - 200 mg/dL [facility] Cholesterol in HDL [Mass/Vol] 46 mg/dL Invalid Interpretation Code [facility] Cholesterol in LDL [Mass/Vol] 105 mg/dL Normal <=129mg/dL [facility] Cholesterol in VLDL [Mass/Vol] 34 mg/dL Normal 7 - 40 mg/dL [facility] CO2 [Moles/Vol] 29 mmol/L Normal 21 - 31 mmol/L [facility] Creatinine [Mass/Vol] 0.9 mg/dL Normal 0.5 - 1.3 mg/dL [facility] GFR/1.73 sq M.predicted among non-blacks MDRD (S/P/Bld) [Vol rate/Area] 94 mL/min/1.73 m2 Normal >=59mL/min/1.73 m2 [facility] S Globulin (S) [Mass/Vol] 3.1 g/dL Normal 1.4 - 4.0 gm/dL [facility] Glucose [Mass/Vol] 165 mg/dL Normal 55 - 199 mg/dL [facility] Potassium [Moles/Vol] 4.0 mmol/L Normal 3.5 - 5.3 mmol/L [facility] Prostate specific Ag [Mass/Vol] 2.7 ng/mL Normal 0.1 - 3.5 ng/mL [facility] Protein [Mass/Vol] 7.4 g/dL Normal 6.0 - 7.8 gm/dL F [facility] Remisol Sodium [Moles/Vol] 142 mmol/L Normal 135 - 145 mmol/L [facility] Triglyceride [Mass/Vol] 168 mg/dL High <=149mg/dL [facility] TSH Qn 1.30 m[IU]/L Normal 0.34 - 5.60 mcIU/mL [facility] Urea nitrogen [Mass/Vol] 14 mg/dL Normal 5 - 21 mg/dL [facility] Urea nitrogen/Creatinin e [Mass ratio] 16 mg/mg Normal 10 - 20 [facility] CHEMISTRYOrdered By: Jeremias oh on 05-19-2023 Albumin DL <= 20 mg/L (U) [Mass/Vol] 5.2 microgram/mL Normal 0.0 - 19.0 mcg/mL [facility] Albumin Elph (U) [Mass fraction] 12.2 mg/dL Invalid Interpretation Code [facility] Creatinine (U) [Mass/Vol] 195.8 mg/dL Invalid Interpretation Code [facility] U Prot/Creat Ratio 62.30 mg/gm Cr Normal 0.00 - 200.00 mg/gm Cr [facility] CHEMISTRYOrdered By: Omaira Medina on 05-19-2023 HbA1c (Bld) [Mass fraction] 7.6 % High <=5.9% [facility] ChemAutoSS CMPon 05-19-2023 Albumin [Mass/Vol] 4.3 g/dL Normal 3.3-5.0 [facility] Comment on above: Performed By: #### 2 [id number], [id number], [id number], 9494848, [id number], 3482075 ####[facility] [address] [place] [address] Albumin/Globulin (S) [Mass conc ratio] 1.4 Normal 1.1-2.2 [facility] Comment on above: Performed By: #### 2 748369, [id number], 37187777, 2768313, 63109028, 3227098 ####[address] [place] [address] ALP [Catalytic activity/Vol] 77 Int._Unit/L Normal 21-98 [facility] Comment on above: Performed By: #### 2 657345, [id number], 41358998, 7081460, 18896430, 4465325 ####[address] [address] ALT No additional P-5'-P [Catalytic activity/Vol] 31 Int._Unit/L Normal 6-46 [facility] Comment on above: Performed By: #### 2 914342, [id number], 86748086, 7805702, 26676331, 6677586 ####[address] [address] Anion gap [Moles/Vol] 13 mmol/L Normal 6-16 [facility] Comment on above: Performed By: #### 2 594531, [id number], 54569059, 5144308, 20020920, 1109426 ####[address] [address] AST [Catalytic activity/Vol] 30 Int._Unit/L Normal 5-43 [facility] Comment on above: Performed By: #### 2 909975, 874128859, 36731241, 6540212, 56783848, 3572276 ####[facility] [address] [place] [address] Bilirubin [Mass/Vol] 0.7 mg/dL Normal 0.0-1.1 [facility] Comment on above: Performed By: #### 2 511791, [id number], 15405688, 0659615, 75360238, 7009519 ####[facility] [address] [place] [address] Calcium [Mass/Vol] 10.0 mg/dL Normal 8.9-11.1 [facility] Comment on above: Performed By: #### 2 551906, [id number], 90432811, 1047695, 65558941, 2684863 ####[facility] [address] [place] [address] Chloride [Moles/Vol] 104 mmol/L Normal 101-111 [facility] Comment on above: Performed By: #### 2 040204, [id number], 80694532, 5807871, 81409112, 0584844 ####[facility] [address] [place] [address] CO2 [Moles/Vol] 29 mmol/L Normal 21-31 [facility] Comment on above: Performed By: #### 2 891114, [id number], 39905253, 9408431, 43274711, 6364006 ####[facility] [address] [place] [address] Creatinine [Mass/Vol] 0.9 mg/dL Normal 0.5-1.3 [facility] Comment on above: Performed By: #### 2 445409, [id number], 31215277, 8688087, 77011574, 4329150 ####[facility] [address] [place] [address] Globulin (S) [Mass/Vol] 3.1 g/dL Normal 1.4-4.0 [facility] Comment on above: Performed By: #### 2 332691, [id number], 16340299, 5909044, 88851099, 5099849 ####[facility] [address] [place] [address] Glucose [Mass/Vol] 165 mg/dL Normal 55-199 [facility] Comment on above: Result Comment: If t his glucose result represents a fasting glucose, interpretation should refer to the following reference range: 55-99 mg/dL Performed By: #### 2 246757, [id number], 64905871, 7195161, 21882278, 4990628 ####[facility] [address] [place] [address] Potassium [Moles/Vol] 4.0 mmol/L Normal 3.5-5.3 [facility] Comment on above: Performed By: #### 2 844578, 761145780, 58213757, 4276539, 13303252, 8616927 ####[facility] [address] [place] [address] Protein [Mass/Vol] 7.4 g/dL Normal 6.0-7.8 [facility] Comment on above: Performed By: #### 2 648290, 269124462, 02026564, 3741893, 43514990, 6493395 ####[facility] [address] [place] [address] Sodium [Moles/Vol] 142 mmol/L Normal 135-145 [facility] Comment on above: Performed By: #### 2 359105, [id number], 61607949, 2667508, 01746114, 9082495 ####[facility] [address] [place] [address] Urea nitrogen [Mass/Vol] 14 mg/dL Normal 5-21 [facility] Comment on above: Performed By: #### 2 764574, 623803695, 60333734, 6837270, 71916978, 7400793 ####[facility] [address] [place] [address] Urea nitrogen/Creatinin e [Mass ratio] 16 No Units Normal 10-20 [facility] Comment on above: Performed By: #### 2 719003, [id number], 55836378, 5231118, 51190949, 6649285 ####[facility] [address] [place] [address] Family Medicine Office/Clini c Noteon 09-25-2023 Family Medicine Office/Clinic Note Chief Complaint Initial Medicare Wellness Visit Review of Systems PHQ Score Initial Depression Screen Score: 0 Physical Exam Vitals & Measurements HR: 91(Peripheral) BP: 132/84 SpO2: 98% HT: 174 cm HT: 69 in WT: 68 kg WT: 149.6 lb BMI: 22.46 Assessment/Plan 1. Annual visit for general adult medical examination without abnormal findings (Z00.00: Encounter for general adult medical examination without abnormal findings) The patient was given a customized and personalized print out of all the current AHRQ USPSTF?s recommendations for preventative services and all current CDC recommended immunizations, relevant risk recommendations and the following patient brochures were given. Reviewed Medicare preventative services checklist. CDC-Falls Prevention and home safety screening reviewed. Patient denies any falls in last 12 months, voices no worry about falling, exhibits no problems with sitting, standing, or ambulation. Pt voices understanding with keeping walk way area free of clutter to prevent tripping and/or falling. [place] Advance Directives reviewed, patient has copies at home, encouraged to bring copy to office for scanning to chart. Patient denies any problems with ADL?s and Instrumental ADL?s. Cognitive screening completed with memory and clock face drawing, no deficits noted. Immunization Record reviewed with the patient. Discussed Shingrix vaccine with educational handout and availability. COVID vaccines have been administered, with 3 boosters, immunization record is up to date. Allergies and medications reviewed and up to date. Patient denies concerns with taking medication as prescribed, reviewed OTC medications with patient, medication list up to date. Blood tests were reviewed: Discussed what tests need to be updated: previously ordered labs completed in office today. Labs were ordered, will have completed prior to next PCP visit. Will have labs completed with [facility] Colonoscopy up to date, last completed 02/04/2023, 10 year repeat. Reviewed pain symptoms with patient: no pain symptoms reported. Reviewed all outside providers that patient follows. Last visit summary notes available in chart and/or have been requested. Follow up scheduled, 09/29/2023 AWV has been scheduled, 05/24/2024 Medicare provides yearly screening for alcohol and depression concerns. This is completed during our Medicare Wellness visit for those who do not have a current diagnosis of depression or concerns with alcohol use. I spent a total of 17 minutes on this date of service which included preparing to see the patient, face to face patient care, completing clinical documentation, obtaining and/or reviewing separately obtained history, counseling and educating the patient with handouts. Explanations were provided with reviewing questionnaires. AUDIT risk assessment screening completed, risk score 2, with patient denying concerns with use. Completed PHQ-2 risk assessment for depression with risk score 0, negative findings. Patient has been reminded to notify the provider if there would be a change or concerns with symptoms with fear, unable to sleep, worrying too much or feeling down and/or sad with lost of interest with daily activities. Will continue to monitor with screening yearly during Medicare wellness visits. 2. Hypercholesterolemia (E78.00: Pure hypercholesterolemia, unspecified) Reviewed healthy lifestyle with low fat diet and exercise regimen. When you are overweight our body produces more lipids. Risk also increases with family history of hyperlipidemia and with monitoring alcohol use and avoid smoking. Patient voices understanding with importance of monitoring dietary intake to reduce risk factors associated with CVA. Taking atorvastatin daily as directed. Will continue to follow up with office visits with updated labs as directed. 3. Type 2 diabetes mellitus without complication, without long-term current use of insulin (E11.9: Type 2 diabetes mellitus without complications) Patient is compliant on current DM medications: Metformin and Glipizide. Does monitors BS at home: DM stoplight handout reviewed with signs and symptoms to monitor for and report to PCP. Discussed ADA dietary recommendations with low carbs and reduce sugar intake. Patient encouraged to increase daily physical activity, adequate water intake and maintain a healthy weight. Pt follows up with PCP with yearly DM foot checks, will need to be completed at next OV. Reminded patient to perform at home foot checks to prevent future complications, wash with soap and water, apply lotion to bilateral feet and in-between toes to prevent dryness and/or cracking. Wear proper fitting shoes and loose fitting socks and/or hose. Follows up with yearly DM eye exams, last completed 05/23/2022, last visit notes have been requested for review. 4. BPH with urinary obstruction (N40.1: Benign prostatic hyperplasia with lower urinary tract symptoms) Patient denies having concerns with urinary retention, distention (more content not included)... Normal [facility] Comment on above: Result Comment: Elec tronically Signed By: Shireen Artis\.br\Date and Time Signed: 05/19/23 11:45 EDT\.br\Electronically Co-Signed By: Sukumar Munguia\.br\Date and Time Co-Signed: 05/19/23 11:11 EDT [id number] 05-19-2023 HbA1c (Bld) [Mass fraction] 7.6 % High <=5.9 [facility] Comment on above: Performed By: #### 2 [id number], [id number], [id number], [id number], [id number], [id number] ####[facility] [address] [place] [address] Lipid Panelon 05-19-2023 Cholesterol [Mass/Vol] 184 mg/dL Normal 120-200 [facility] Comment on above: Performed By: #### 2 [id number], [id number], [id number], [id number], [id number], [id number] ####[facility] [address] [place] [address] Cholesterol in HDL [Mass/Vol] 46 mg/dL Invalid Interpretation Code [facility] Comment on above: Result Comment: HDL > or equal to 60 mg/dL: Low cardiovascular risk HDL < 40 mg/dL : High cardiovascular risk Performed By: #### 2 [id number], [id number], [id number], [id number], [id number], [id number] ####[facility] [address] [place] [address] Cholesterol in LDL [Mass/Vol] 105 mg/dL Normal <=129 [facility] Comment on above: Performed By: #### 2 [id number], [id number], [id number], [id number], [id number], [id number] ####[facility] [address] [place] [address] Cholesterol in VLDL [Mass/Vol] 34 mg/dL Normal 7-40 [facility] Comment on above: Performed By: #### 2 [id number], [id number], [id number], [id number], [id number], [id number] ####[facility] [address] [place] [address] Triglyceride [Mass/Vol] 168 mg/dL High <=149 [facility] Comment on above: Performed By: #### 2 [id number], [id number], [id number], [id number], [id number], [id number] ####[facility] [address] [place] [address] PSA Screen, Totalon 05-19-20 23 Prostate specific Ag [Mass/Vol] 2.7 ng/mL Normal 0.1-3.5 [facility] Comment on above: Result Comment: The concentration of PSA determined by different manufacturers can vary due to differences in assay methods and reagent specificity. Values obtained from different assay methods cannot be used interchangeably. The methodology used for this result was chemiluminescence using [employer] Access [employer] PSA reagent. Performed By: #### 2 [id number], [id number], [id number], [id number], [id number], [id number] ####[facility] [address] [place] [address] Patient Educationon 05-19-20 23 Patient Education Caregiving Fall Prevention in the Home, Adult Falls can cause injuries and can happen to people of all ages. There are many things you can do to make your home safe and to help prevent falls. Ask for help when making these changes. What actions can I take to prevent falls? General Instructions ? Use good lighting in all rooms. Replace any light bulbs that burn out. ? Turn on the lights in dark areas. Use night-lights. ? Keep items that you use often in aqqj-ws-migvt places. Lower the shelves around your home if needed. ? Set up your furniture so you have a clear path. Avoid moving your furniture around. ? Do not have throw rugs or other things on the floor that can make you trip. ? Avoid walking on wet floors. ? If any of your floors are uneven, fix them. ? Add color or contrast paint or tape to clearly nalini and help you see: ? Grab bars or handrails. ? First and last steps of staircases. ? Where the edge of each step is. ? If you use a stepladder: ? Make sure that it is fully opened. Do not climb a closed stepladder. ? Make sure the sides of the stepladder are locked in place. ? Ask someone to hold the stepladder while you use it. ? Know where your pets are when moving through your home. What can I do in the bathroom? ? Keep the floor dry. Clean up any water on the floor right away. ? Remove soap buildup in the tub or shower. ? Use nonskid mats or decals on the floor of the tub or shower. ? Attach bath mats securely with double-sided, nonslip rug tape. ? If you need to sit down in the shower, use a plastic, nonslip stool. ? Install grab bars by the toilet and in the tub and shower. Do not use towel bars as grab bars. What can I do in the bedroom? ? Make sure that you have a light by your bed that is easy to reach. ? Do not use any sheets or blankets for your bed that hang to the floor. ? Have a firm chair with side arms that you can use for support when you get dressed. What can I do in the kitchen? ? Clean up any spills right away. ? If you need to reach something above you, use a step stool with a grab bar. ? Keep electrical cords out of the way. ? Do not use floor faroese or wax that makes floors slippery. What can I do with my stairs? ? Do not leave any items on the stairs. ? Make sure that you have a light switch at the top and the bottom of the stairs. ? Make sure that there are handrails on both sides of the stairs. Fix handrails that are broken or loose. ? Install nonslip stair treads on all your stairs. ? Avoid having throw rugs at the top or bottom of the stairs. ? Choose a carpet that does not hide the edge of the steps on the stairs. ? Check carpeting to make sure that it is firmly attached to the stairs. Fix carpet that is loose or worn. What can I do on the outside of my home? ? Use bright outdoor lighting. ? Fix the edges of walkways and driveways and fix any cracks. ? Remove anything that might make you trip as you walk through a door, such as a raised step or threshold. ? Trim any bushes or trees on paths to your home. ? Check to see if handrails are loose or broken and that both sides of all steps have handrails. ? Install guardrails along the edges of any raised decks and porches. ? Clear paths of anything that can make you trip, such as tools or rocks. ? Have leaves, snow, or ice cleared regularly. ? Use sand or salt on paths during winter. ? Clean up any spills in your garage right away. This includes grease or oil spills. What other actions can I take? ? Wear shoes that: ? Have a low heel. Do not wear high heels. ? Have rubber bottoms. ? Feel good on your feet and fit well. ? Are closed at the toe. Do not wear open-toe sandals. ? Use tools that help you move around if needed. These include: ? Canes. ? Walkers. ? Scooters. ? Crutches. ? Review your medicines with your doctor. Some medicines can make you feel dizzy. This can increase your chance of falling. Ask your doctor what else you can do to help prevent falls. Where to find more information ? Centers for Disease Control and Prevention, [place]: www.cdc.gov ? National [place] on Aging: www.yuri.nih.gov Contact a doctor if: ? You are afraid of falling at home. ? You feel weak, drowsy, or dizzy at home. ? You fall at home. Summary ? There are many simple things that you can do to make your home safe and to help prevent falls. ? Ways to make your home safe include removing things that can make you trip and installing grab bars in the bathroom. ? Ask for help when making these changes in your home. This information is not intended to replace advice given to you by your health care provider. Make sure you discuss any questions you have with your health care provider. Document Revised: 05/13/2022 Document Reviewed: 03/14/2021 [employer] Patient Education ? 2022 [employer] Endocrinology Diabetes Melli (more content not included)... Normal [facility] Screenson 05-19-2023 Screens [id number] Normal [facility] TSHon 05-19-2023 TSH Qn 1.30 m[IU]/L Normal 0.34-5.60 [facility] Comment on above: Performed By: #### 2 [id number], [id number], [id number], [id number], [id number], [id number] ####[facility] [address] [place] [address] U Microalbon 05-19-2023 Albumin DL <= 20 mg/L (U) [Mass/Vol] 5.2 microgram/mL Normal 0.0-19.0 [facility] Comment on above: Performed By: #### 1 [id number], [id number] #### [facility] [address] [place] [address] U Protein/Creat Ratioon 04-26 Albumin Elph (U) [Mass fraction] 12.2 mg/dL Invalid Interpretation Code [facility] Comment on above: Result Comment: The reference range and other method performance specifications have not been established for this test; results should be integrated into the clinical context for interpretation. Performed By: #### 1 [id number], [id number] ####[facility] [address] [place] [address] Creatinine (U) [Mass/Vol] 195.8 mg/dL Invalid Interpretation Code [facility] Comment on above: Result Comment: The reference range and other method performance specifications have not been established for this test; results should be integrated into the clinical context for interpretation. Performed By: #### 1 [id number], [id number] ####[facility] [address] [place] [address] U Prot/Creat Ratio 62.30 mg/gm Cr Normal .00-200.00 [facility] Comment on above: Performed By: #### 1 [id number], [id number] ####[facility] [address] [place] [address] eGFRon 05-19-2023 GFR/1.73 sq M.predicted among non-blacks MDRD (S/P/Bld) [Vol rate/Area] 94 mL/min/1.73 m2 Normal >=59 [facility] Comment on above: Order Comment: Order added by Discern Expert. Result Comment: [employer] Book[employer] Representative ulysses kidney disease could be indicated at eGFR's of less than 60 mL/min/1.73m2. Kidney failure is indicated at less than 15 mL/min/1.73m2. Performed By: #### 2 [id number], [id number], [id number], [id number], [id number], [id number] ####[facility] [address] [place] [address] Ambulatory Visit Summaryon 0 05-14-2023 Ambulatory Visit Summary SANKET LOZADA :1955 Visit Date:05/14/2023 Ambulatory Visit Instructions Your Diagnosis Sinusitis Left otitis media BMI 23.0-23.9, adult Non-smoker Your Care Team Attending Physician - Shireen Artis Primary Care Physician - Shireen Artis This Is Your Medications List Misc Prescription (Misc DME Prescription) Misc Prescription (Misc DME Prescription) ascorbic acid (Vitamin C) atorvastatin (atorvastatin 10 mg Tab) glipiZIDE (glipiZIDE 2.5 mg ER Tab) meloxicam (Mobic 15 mg Tab) metformin (metformin 500 mg Tab) multivitamin with minerals (Centrum Silver oral tablet) psyllium (Metamucil) Procedures Performed Colonoscopy (01/2023), Varicose vein (07/10/2018), varicose vein surgery- EVLT LGSV (12/01/2017), Stripping and ligation of great saphenous vein (01/28/2012), Arthroscopy of knee (1998), Extraction of wisdom tooth, Varicose veins. Discharge Vitals Temperature (Oral) 36.8 ?C Heart Rate (Peripheral) 102 Respiratory Rate 20 Blood Pressure 122/80 Height 172 cm Height 68 in Weight 68.62 kg Weight 150.964 lb BMI 23.19 What to do next Scheduled Follow-Up Appointments Friday 9:30 AM EDT With: Where: [facility] Invalid Interpretation Code [address] [place] [address]- \.br\ Friday 9:45 AM EDT \.br\ With: KARON DOHERTY, Jimmy Sanchez\.br\ Where: [facility] Family Medicine Office/Clini c Noteon 05-14-2023 Family Medicine Office/Clinic Note HPI Staff Sanket is a 68 year old male presenting to Acute sick visit Respiratory C/O: Onset:3 days ago Body aches: no Chest congestion: no Chills: no Cough: yes dry tickle back of throat Ear complaints: yes popping Eye itching/watering: no Fever: no Headache: no Nasal congestion: no Nasal discharge: yes yellow Poor appetite: no Reduced activity: no Sinus pain/pressure: no Sneezing: no Sputum production: no Wheezing: no Ill contacts: no Remedies tried: took NyQuil last night, taking dayquil and Tylenol Questions/Concerns: patient negative for covid tested 05/12/23, woke up with sore throat History of Present Illness pt c/o nasal congestion, tickle in throat ears popping Review of Systems PHQ Score Initial Depression Screen Score: 0 ROS - Provider Constitutional: no fever, no chills, no sweats, no fatigue Respiratory: no shortness of breath, no cough, no orthopnea, no wheezing. Cardiovascular: no chest pain, no palpitations, no edema. Neurologic: no headache, no dizziness, no numbness, no weakness. Physical Exam Vitals & Measurements T: 36.8 ?C(Oral) HR: 102(Peripheral) RR: 20 BP: 122/80 SpO2: 96% HT: 68 in HT: 172 cm WT: 68.62 kg WT: 150.964 lb BMI: 23.19 General: alert, no acute distress ENMT: oral mucosa moist, no pharyngeal erythema or exudate Cardiovascular: regular rate and rhythm, normal peripheral perfusion Respiratory: Lungs CTA, respirations non labored Extremities: no deformity, no trauma Neurological: oriented x 4, LOC appropriate for age, CN II-XII intact, motor strength equal & normal bilaterally, speech normal Assessment/Plan 1. Sinusitis (J32.9: Chronic sinusitis, unspecified) pt presents today with c/o sinus pressure, nasal congestion. low grade fever. Ordered: cefuroxime, 500 mg = 1 tab(s), Oral, BID, X 7 day(s), # 14 tab(s), Refills(s) 0, Pharmacy: [facility], 172, cm, 05/14/23 10:47:00 EDT, Height/Length Dosing, 68.6, kg, 05/14/23 10:47:00 EDT, Weight Dosing fluticasone nasal, 2 spray(s), Nasal, Daily, 16 gram, Refill(s) 0, each nostril, [facility], 172, cm, 05/14/23 10:47:00 EDT, Height/Length Dosing, 68.6, kg, 05/14/23 10:47:00 EDT, Weight Dosing 2. Left otitis media (H66.92: Otitis media, unspecified, left ear) left OM noted on exam will send antibiotics and flonase Ordered: cefuroxime, 500 mg = 1 tab(s), Oral, BID, X 7 day(s), # 14 tab(s), Refills(s) 0, Pharmacy: [facility], 172, cm, 05/14/23 10:47:00 EDT, Height/Length Dosing, 68.6, kg, 05/14/23 10:47:00 EDT, Weight Dosing fluticasone nasal, 2 spray(s), Nasal, Daily, 16 gram, Refill(s) 0, each nostril, [facility], 172, cm, 05/14/23 10:47:00 EDT, Height/Length Dosing, 68.6, kg, 05/14/23 10:47:00 EDT, Weight Dosing 3. BMI 23.0-23.9, adult (Z68.23: Body mass index [BMI] 23.0-23.9, adult) BMI education complete Ordered: cefuroxime, 500 mg = 1 tab(s), Oral, BID, X 7 day(s), # 14 tab(s), Refills(s) 0, Pharmacy: [facility], 172, cm, 05/14/23 10:47:00 EDT, Height/Length Dosing, 68.6, kg, 05/14/23 10:47:00 EDT, Weight Dosing fluticasone nasal, 2 spray(s), Nasal, Daily, 16 gram, Refill(s) 0, each nostril, [facility], 172, cm, 05/14/23 10:47:00 EDT, Height/Length Dosing, 68.6, kg, 05/14/23 10:47:00 EDT, Weight Dosing 4. Non-smoker (Z78.9: Other specified health status) continue not smoking Ordered: cefuroxime, 500 mg = 1 tab(s), Oral, BID, X 7 day(s), # 14 tab(s), Refills(s) 0, Pharmacy: [facility], 172, cm, 05/14/23 10:47:00 EDT, Height/Length Dosing, 68.6, kg, 05/14/23 10:47:00 EDT, Weight Dosing fluticasone nasal, 2 spray(s), Nasal, Daily, 16 gram, Refill(s) 0, each nostril, [facility], 172, cm, 05/14/23 10:47:00 EDT, Height/Length Dosing, 68.6, kg, 05/14/23 10:47:00 EDT, Weight Dosing Follow-up No qualifying data available Problem List/Past Medical History Ongoing BPH with urinary obstruction Elevated PSA Family history of prostate cancer Glycosuria Hypercholesterolemia Left otitis media Microscopic hematuria Screening for prostate cancer Sinusitis Tear of meniscus of right knee Type 2 diabetes mellitus without complication, without long-term current use of insulin Varicose vein Historical Hyperlipidemia Procedure/Surgical History Colonoscopy (01/2023), Varicose vein (07/10/2018), varicose vein surgery- EVLT LGSV (12/01/2017), Stripping and ligation of great saphenous vein (01/28/2012), Arthroscopy of knee (1998), Extraction of wisdom tooth, Varicose veins. Medications atorvastatin 10 mg Tab, 10 mg= 1 tab(s), Oral, Bedtime cefuroxime 500 mg oral tablet, 500 mg= 1 tab(s), Oral, BID Centrum Silver oral tablet, 1 tab(s), Oral, Daily Flonase 0.05 mg/inh [place], 2 spray(s), Nasal, Daily glipiZIDE 2.5 mg ER Tab, Oral, Daily Metamucil, See Instructions metformin 500 mg Tab, 1500 mg= 3 tab(s), Oral, Daily Misc DME Prescription, See Instructions, 1 refills Misc DME Prescription, (more content not included)... Normal [facility] Comment on above: Result Comment: Elec tronically Signed By: Shireen Artis\.br\Date and Time Signed: 05/14/23 13:00 EDT Family Medicine Office/Clini c Noteon 04-02-2023 Family Medicine Office/Clinic Note Chief Complaint establish care meet and greet HPI Staff patient here to establish care, former patient of Dr Linda's Hx: dm,bph, cholesterol , Hx specialist: Urology changing to dr romero, Dr Duarte retired When was your last doctors visit: 02/13/23 w/ Shireen Bahena Last provider: Dr Linda Any recent labs: 12/26/22 A1c 7.0 Colonoscopy: January 2023 one polyp pathology benign questions/concerns: none just a meet and greet History of Present Illness Sanket Lozada is a 68-year-old male who presents today for an evaluation. His last A1c was 7.0% in 12/2022. He was getting his A1c checked every 3 months, but sometimes every 6 months. He is not on insulin. He takes metformin 1500 mg and glipizide 2.[address] Romero for his prostate. He has an appointment on 05/2023. He had a colonoscopy on his birthday. They only found 1 small polyp. They sent it away and everything was fine. He broke his big toe on Mother's Day. It has gotten better. He has a torn meniscus in his right knee. He has not had it fixed. Dr. Fox gave him an injection. It did help. He likes bowling. After he tore the meniscus, he still tried to bowl, but it was not as effective. Last year was the first time he had not had a 200 average in over 22 years. It does not stop him from doing anything else. He had a left knee arthroscopy in 1998 because he had a torn meniscus. His right knee cramps up occasionally. Dr. Linda gave him Mobic. He has had all his COVID-19 vaccines. He always gets his flu vaccine. He asks if he needs a shingles vaccine. He had walking pneumonia 6 or 7 years ago and had pneumonia shots. He needs an update on his pneumonia vaccines. He denies a family history of diabetes. Review of Systems PHQ Score Initial Depression Screen Score: 0 Physical Exam Vitals & Measurements T: 37.0 ?C(Oral) HR: 100(Peripheral) RR: 14 BP: 116/74 SpO2: 92% HT: 68 in HT: 172 cm WT: 69.5 kg WT: 152.9 lb BMI: 23.49 General: alert, no acute distress Cardiovascular: regular rate and rhythm, normal peripheral perfusion Respiratory: Lungs CTA, respirations non labored Extremities: no deformity, no trauma Neurological: oriented x 4, LOC appropriate for age, CN II-XII intact, motor strength equal & normal bilaterally, speech normal Assessment/Plan 1. Hypercholesterolemia (E78.00: Pure hypercholesterolemia, unspecified) Patient is on a statin at this time. We will continue and we will refill as needed. No other issues. 2. Type 2 diabetes mellitus without complication, without long-term current use of insulin (E11.9: Type 2 diabetes mellitus without complications) We will continue the glipizide and the metformin. Continue to monitor blood sugars and will follow up as needed. 3. BPH with urinary obstruction (N40.1: Benign prostatic hyperplasia with lower urinary tract symptoms) Patient sees Dr. Romero. We will continue to monitor. 4. Other obstructive and reflux uropathy (N13.8: Other obstructive and reflux uropathy) As above 5. Gastroesophageal reflux disease without esophagitis (K21.9: Gastro-esophageal reflux disease without esophagitis) Patient takes no medication at this time for that. We will continue to monitor. Patient is on a Mobic and that could be causing some of this issue. 6. Tear of meniscus of right knee (S83.206A: Unspecified tear of unspecified meniscus, current injury, right knee, initial encounter) Patient sees ortho. Encouraged injections to help continue. Patient being active. 7. BMI 23.0-23.9, adult (Z68.23: Body mass index [BMI] 23.0-23.9, adult) BMI education given. We will see the patient back in 6 months or sooner if labs needed or if labs indicate. Portions of this record may have been created with voice recognition artificial intelligence software, specifically [email or web address], Dragon Express and or Dragon Ambient Experience. Substitutions may have occurred due to the inherent limitations of voice recognition and artificial intelligence software. Documentation services were performed after patient or guardian consented to allow Dragon Ambient eXperience to record this visit. CHANTELL information systems security specialist and provider reviewed before signing. CHANTELL: Callie Jaimes Follow-up No qualifying data available Problem List/Past Medical History Ongoing BPH with urinary obstruction Elevated PSA Family history of prostate cancer Glycosuria Hypercholesterolemia Microscopic hematuria Screening for prostate cancer Tear of meniscus of right knee Type 2 diabetes mellitus without complication, without long-term current use of insulin Varicose vein Historical Hyperlipidemia Procedure/Surgical History Colonoscopy (01/2023), Varicose vein (07/10/2018), varicose vein surgery- EVLT LGSV (12/01/2017), Stripping and ligation of great saphenous vein (01/28/2012), Arthroscopy of knee (1998), Extraction of wisdom tooth, Varicose veins. Medications atorvastatin 10 mg Tab, 10 mg= 1 tab(s), Oral, Bedtime Centrum Silver oral ta (more content not included)... Normal [facility] Comment on above: Result Comment: Elec tronically Signed By: Dada Weston MD\.br\Date and Time Signed: 04/02/23 09:13 EDT\.br\Electronically Co-Signed By: Callie Jaimes\.br\Date and Time Co-Signed: 03/31/23 16:54 EDT Ambulatory Visit Summaryon 0 03-31-2023 Ambulatory Visit Summary KEYA LOZADAJESUS Andrade :1955 Visit Date:03/31/2023 Ambulatory Visit Instructions Your Diagnosis Hypercholesterolemia Type 2 diabetes mellitus without complication, without long-term current use of insulin BPH with urinary obstruction Other obstructive and reflux uropathy Gastroesophageal reflux disease without esophagitis Tear of meniscus of right knee BMI 23.0-23.9, adult Your Care Team Attending Physician - Dada Weston MD Primary Care Physician - Shireen Artis This Is Your Medications List Contact prescribing physician if questions or concerns ascorbic acid (Vitamin C) atorvastatin (atorvastatin 10 mg Tab) glipiZIDE (glipiZIDE 2.5 mg ER Tab) meloxicam (Mobic 15 mg Tab) metformin (metformin 500 mg Tab) multivitamin with minerals (Centrum Silver oral tablet) psyllium (Metamucil) Procedures Performed Colonoscopy (01/2023), Varicose vein (07/10/2018), varicose vein surgery- EVLT LGSV (12/01/2017), Stripping and ligation of great saphenous vein (01/28/2012), Arthroscopy of knee (1998), Extraction of wisdom tooth, Varicose veins. Discharge Vitals Temperature (Oral) 37.0 ?C Heart Rate (Peripheral) 100 Respiratory Rate 14 Blood Pressure 116/74 Height 172 cm Height 68 in Weight 69.5 kg Weight 152.9 lb BMI 23.49 What to do next Scheduled Follow-Up Appointments Friday 9:30 AM EDT With: Where: [facility] Invalid Interpretation Code [address] [place] [address]- \.br\ Friday 9:45 AM EDT \.br\ With: KARON DOHERTY, Jimmy Sanchez\.br\ Where: [facility] Outside Colonoscopyon 2022 Outside Colonoscopy [id number] 0CD:127 Normal [facility] Outside Colonoscopy [id number]#[id number] 0CD:127 Normal [facility] Medicine Office/Clini c Noteon 02-13-2023 Family Medicine Office/Clinic Note Chief Complaint Establish care HPI Staff Sanket is at 68 year old male presenting to establish care Establish Care: History: Any previous diagnosis: Diabetes, HLD History of seeing any specialist: Urology When was your last doctors visit: Last provider: Dr Linda Any recent labs: 12/26/22 A1c 7.0 Health Maintenance UTD: Colonoscopy: 02/14 awaiting result for a small pile up. PSA: will have drawn in April Acute: Current issues/complaints: No at this time History of Present Illness Pt presents today to establish care Review of Systems PHQ Score Initial Depression Screen Score: 0 ROS - Provider Constitutional: no fever, no chills, no sweats, no fatigue Respiratory: no shortness of breath, no cough, no orthopnea, no wheezing. Cardiovascular: no chest pain, no palpitations, no edema. Neurologic: no headache, no dizziness, no numbness, no weakness. Physical Exam Vitals & Measurements HR: 90(Peripheral) RR: 18 BP: 118/72 SpO2: 96% HT: 68 in HT: 172 cm WT: 69.9 kg WT: 153.78 lb BMI: 23.63 General: alert, no acute distress ENMT: oral mucosa moist, no pharyngeal erythema or exudate Cardiovascular: regular rate and rhythm, normal peripheral perfusion Respiratory: Lungs CTA, respirations non labored Extremities: no deformity, no trauma Neurological: oriented x 4, LOC appropriate for age, CN II-XII intact, motor strength equal & normal bilaterally, speech normal Assessment/Plan 1. Diabetes mellitus (E11.9: Type 2 diabetes mellitus without complications) pt presents today to establish care. HGBA1C was 7.0 in December. Will have it redrawn in April with his PSA. He has an appointment with urology in May. So he would like to have it drawn right before that appointment. Pt denies needs or need for refills at this time. All questions answered. RTC in March. He would like to get established with Dr. Weston. Ordered: Body Mass Index (BMI) documented 3008F Current tobacco non-user 1036F HBA1C <7.0 Most Recent Level 3044F HgbA1c Patient screen for fall risk: no falls in last year or 1 fall with no injury in last year 1101F PSA Screen, Total 2. BMI 23.0-23.9, adult (Z68.23: Body mass index [BMI] 23.0-23.9, adult) BMI education compelte Ordered: Body Mass Index (BMI) documented 3008F Current tobacco non-user 1036F HBA1C <7.0 Most Recent Level 3044F HgbA1c Patient screen for fall risk: no falls in last year or 1 fall with no injury in last year 1101F PSA Screen, Total 3. Screening for prostate cancer (Z12.5: Encounter for screening for malignant neoplasm of prostate) will have PSA drawn in April Ordered: HgbA1c PSA Screen, Total 4. Non-smoker (Z78.9: Other specified health status) continue not smoking Ordered: Body Mass Index (BMI) documented 3008F Current tobacco non-user 1036F HBA1C <7.0 Most Recent Level 3044F HgbA1c Patient screen for fall risk: no falls in last year or 1 fall with no injury in last year 1101F PSA Screen, Total Orders: meloxicam, 15 mg, Oral, Daily, # 30 tab(s), Refills(s) 2, Pharmacy: [facility], 172, cm, 02/13/23 13:17:00 EDT, Height/Length Dosing, 69.9, kg, 02/13/23 13:17:00 EDT, Weight Dosing Follow-up No qualifying data available Problem List/Past Medical History Ongoing BPH with urinary obstruction Diabetes mellitus Elevated PSA Family history of prostate cancer Glycosuria Hypercholesterolemia Microscopic hematuria Screening for prostate cancer Varicose vein Historical Hyperlipidemia Procedure/Surgical History Colonoscopy (01/2023), Varicose vein (07/10/2018), varicose vein surgery- EVLT LGSV (12/01/2017), Stripping and ligation of great saphenous vein (01/28/2012), Arthroscopy of knee (1998), Extraction of wisdom tooth, Varicose veins. Medications atorvastatin 10 mg Tab, 10 mg= 1 tab(s), Oral, Bedtime Centrum Silver oral tablet, 1 tab(s), Oral, Daily glipiZIDE 2.5 mg ER Tab, Oral, Daily metformin 500 mg Tab, 1500 mg= 3 tab(s), Oral, Daily Mobic 15 mg Tab, 15 mg, Oral, Daily, 2 refills Vitamin C, Daily Allergies sulfamethoxazole (Hives) Social History Alcohol - Low Risk, 06/25/2018 Substance Abuse - Denies Substance Abuse, 01/15/2012 Tobacco - Denies Tobacco Use, 01/15/2012 Never (less than 100 in lifetime) Tobacco Use:. Never Smokeless Tobacco Use:., 02/13/2023 Family History Primary malignant neoplasm of prostate: Father and Brother. Immunizations Vaccine Date Status Comments SARS-CoV-2 (COVID-19) mRNA BNT-162b2 vax 07/20/2021 Recorded 2022-06-17: TPV60 influenza virus vaccine, inactivated 06/12/2021 Recorded SARS-CoV-2 (COVID-19) mRNA BNT-162b2 vax 10/27/2020 Recorded SARS-CoV-2 (COVID-19) mRNA BNT-162b2 vax 10/06/2020 Recorded SARS-CoV-2 (COVID-19) Ad26 vaccine 08/04/2020 Recorded SARS-CoV-2 (COVID-19) Ad26 vaccine 07/07/2020 Recorded influenza virus vaccine, inactivated 06/27/2020 Recorded influenza virus vaccine, inactivated 09/03/2016 Recorded Normal [facility] Comment on above: Result Comment: Elec tronically Signed By: Shireen Artis.carl\Date and Time Signed: 02/13/23 14:53 EDT Glucose Poct Glucometerson 0 02-04-2023 Glucose [Mass/Vol] 137 mg/dL Normal [facility] Comment on above: Result Comment: [facility] Glucose Reference Range is dependent on time and content of last meal. Glucose of more than 200 mg/dL in a nonstressed, ambulatory subject supports the diagnosis of Diabetes Mellitus. PERFORMED BY: [facility] [address] [address] PATHOLOGIST SUPERVISOR VARNISH KATIE DAMON M.D. Performed By: #### G EDIE #### Point of Care testing , Fred 02-04-2023 L -- ---- Specimen: [id number] Received: 02/04/23 Status: IRINA Posadas Num: [id number] Spec Type: Surgical Subm Dr: Karen Lobo MD Tissues: A Colon Biopsy (SIGMOID POLYP) Procedures: HE/2, Gross/Micro L4 ---- Age/ Patient Sex Location Account Attending Physician ---- Sanket Lozada /[facility] [id number] Karen Lobo MD ---- SPEC NUM: [id number] RECD: 02/04/23 STATUS: IRINA POSADAS NUM: [id number] CHAVO: 02/04/23 DR: Karen Lobo MD ENTERED: 02/04/[address]: RAMAKRISHNA TYPE: Surgical DEPT: S ORDERED: HE/2, Gross/Micro L4 ORDERED: HE/2, Gross/Micro L4 Pathological Diagnosis A. Colon, sigmoid colon polyp, biopsy: - Hyperplastic polyp. Gross Description A. Received in formalin labeled with the patient's name, number and sigmoid polyp ? is one fragment of soft webb tissue measuring 0.5 x 0.3 x 0.1 cm. Entirely submitted in one cassette labeled A1. CPT Codes 37943 ---- ---- Specimen: [id number] Received: 02/04/23 Status: IRINA Posadas Num: [id number] Spec Type: Surgical Subm Dr: Karen Lobo MD Tissues: A Colon Biopsy (SIGMOID POLYP) Procedures: HE/2, Gross/Micro L4 ---- Patient: Sanket Lozada [id number] (Continued) ---- Signed (signature on file) Bee Leyva MD 02/05/23 1204 [facility] XR FOOT LT MIN 3 VIEWSon XR FOOT LT MIN 3 VIEWS IMAGES REVIEWED: XR FOOT LT MIN 3 VIEWS COMPARISON: None available. CLINICAL INDICATION: Pain FINDINGS/IMPRESSION: Acute obliquely oriented nondisplaced fracture of the first proximal phalanx with apparent intra-articular extension into the first interphalangeal joint. Questionable focal cortical irregularity involving the dorsal talar head on the lateral view is likely chronic. Otherwise the left foot appears intact. 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 Electronically authenticated by: XIOMARA VELAZQUEZZ Date: 2023-01-05 20:26 Normal [facility] Report[facility] 12-31-2022 Lab Reports [id number] 0CD:127 Normal [facility] CBC AUTO DIFFon 12-26-2022 BASO # 0.1 103/ul Normal 0.0-0.1 [facility] Comment on above: Performed By: #### C BC #### [facility] [address] [address] [address] Billy Man Basophils/100 WBC (Bld) 0.9 % Normal 0.2-2.0 [facility] Comment on above: Performed By: #### C BC #### [facility] [address] [place] [address] Dr. Billy Man EO # 0.4 103/ul Normal 0.0-0.7 [facility] Comment on above: Performed By: #### C BC #### [facility] [address] [place] [address] Dr. Billy Man Eosinophils/100 WBC (Bld) 5.4 % Normal 0.9-7.0 [facility] Comment on above: Performed By: #### C BC #### [facility] [address] [place] [address] Dr. Billy Man Erythrocyte distribution width (RBC) [Ratio] 11.9 % Normal 11.0-15.0 [facility] Comment on above: Performed By: #### C BC #### [facility] [address] [place] [address] Dr. Billy Man Hematocrit (Bld) [Volume fraction] 47.6 % Normal 42.0-54.0 [facility] Comment on above: Performed By: #### C BC #### [facility] [address] [place] [address] Dr. Billy Man Hemoglobin (Bld) [Mass/Vol] 16.4 g/dL Normal 14.0-18.0 [facility] Comment on above: Performed By: #### C BC #### [facility] [address] [place] [address] Dr. Billy Man IG # 0.02 10e3/ul Normal 0.00-0.03 [facility] Comment on above: Performed By: #### C BC #### [facility] [address] [place] [address] Dr. Billy Man IG % 0.3 % Normal 0.0-0.5 [facility] Comment on above: Performed By: #### C BC #### [facility] [address] [place] [address] Dr. Billy Man LYMPH # 1.9 103/ul Normal 1.2-3.8 [facility] Comment on above: Performed By: #### C BC #### [facility] [address] [place] [address] Dr. Billy Man Lymphocytes/100 WBC (Bld) 28.8 % Normal 20.5-60.0 [facility] Comment on above: Performed By: #### C BC #### [facility] [address] [place] [address] Dr. Billy Man MANUAL DIFF REQ NO Normal [facility] Comment on above: Performed By: #### C BC #### [facility] [address] [place] [address] Dr. Billy Man MCH (RBC) [Entitic mass] 30.9 pg Normal 25.9-34.0 [facility] Comment on above: Performed By: #### C BC #### [facility] [address] [place] [address] Dr. Billy Man MCHC (RBC) [Mass/Vol] 34.5 g/dL Normal 29.9-35.2 [facility] Comment on above: Performed By: #### C BC #### [facility] [address] [place] [address] Dr. Billy Man MCV (RBC) [Entitic vol] 89.8 fL Normal 80.0-94.0 [facility] Comment on above: Performed By: #### C BC #### [facility] [address] [place] [address] Dr. Billy Man MONO # 0.5 103/ul Normal 0.3-0.8 [facility] Comment on above: Performed By: #### C BC #### [facility] [address] [address] [address] Billy Man Monocytes/100 WBC (Bld) 8.0 % Normal 1.7-12.0 [facility] Comment on above: Performed By: #### C BC #### [facility] [address] [address] [address] Billy Man NEUT # 3.7 103/ul Normal 1.4-6.5 [facility] Comment on above: Performed By: #### C BC #### [facility] [address] [place] [address] Dr. Billy Man Neutrophils/100 WBC (Bld) 56.6 % Normal 43.0-75.0 [facility] Comment on above: Performed By: #### C BC #### [facility] [address] [place] [address] Dr. Billy Man Platelet mean volume (Bld) [Entitic vol] 9.8 fL Normal 9.5-13.5 [facility] Comment on above: Performed By: #### C BC #### [facility] [address] [place] [address] Dr. Billy Man PLT 233 103/ul Normal 150-450 [facility] Comment on above: Performed By: #### C BC #### [facility] [address] [place] [address] Dr. Billy Man RBC 5.30 106/ul Normal 4.70-6.10 [facility] Comment on above: Performed By: #### C BC #### [facility] [address] [place] [address] Dr. Billy Man WBC 6.5 103/ul Normal 4.0-11.0 [facility] Comment on above: Performed By: #### C BC #### [facility] [address] [place] [address] Dr. Billy Man GLYCOHEMOGLOBIN A1Con 2022 ADA RECOMMENDATION SEE BELOW Normal [facility] Comment on above: Result Comment: ADA RECOMMENDED LIMIT 4.0 - 6.0 ADA THERAPEUTIC TARGET < 7.0 ACTION SUGGESTED > 7.0 Performed By: #### A 1C ####[facility] [id number] [address]DrHarjeet Man Glucose [Mass/Vol] 154 mg/dL Normal [facility] Comment on above: Performed By: #### A 1C ####[facility] [id number] [address]DrHarjeet Man HbA1c (Bld) [Mass fraction] 7.0 % Critically high 4.5-6.2 [facility] Comment on above: Performed By: #### A 1C ####[facility] [id number] [address]DrHarjeet Man LIPID PROFILEon 12-26-2022 CHOL-HDL RATIO NORM SEE BELOW Normal [facility] Comment on above: Result Comment: 3.3 - 4.4 LOW RISK 4.4 - 7.1 AVERAGE RISK 7.1 - 11.0 MODERATE RISK >11.0 HIGH RISK Performed By: #### L IPID, CMP #### [facility] [address] [address] [address] Billy Man Cholesterol [Mass/Vol] 195 mg/dL Normal <=200 [facility] Comment on above: Performed By: #### L IPID, CMP #### [facility] [address] [address] [address] Billy Man Cholesterol in HDL [Mass/Vol] 52 mg/dL Normal 40-60 [facility] Comment on above: Performed By: #### L IPID, CMP #### [facility] [address] [address] [address] Billy Man Cholesterol in LDL [Mass/Vol] 95.6 mg/dL Normal [facility] Comment on above: Performed By: #### L IPID, CMP #### [facility] [address] [address] [address] Billy Man Cholesterol.total/ Cholesterol in HDL [Mass ratio] 3.8 {ratio} Normal [facility] Comment on above: Performed By: #### L IPID, CMP #### [facility] [address] [address] [address] Billy Man HDL NORMAL > or = 60 mg/dl - LO W CARDIOVASCULAR RISK <40 mg/dl - HIGH CARDIOVASCULAR RISK Normal [facility] Comment on above: Performed By: #### L IPID, CMP #### [facility] [address] [address] [address] Billy Man LDL CALC NORMAL SEE BELOW Normal [facility] Comment on above: Result Comment: <100 mg/dl OPTIMAL 100 - 129 mg/dl NEAR OR ABOVE OPTIMAL 130 - 159 mg/dl BORDERLINE HIGH 160 - 189 mg/dl HIGH >190 mg/dl VERY HIGH Performed By: #### L IPID, CMP #### [facility] [address] [address] [address] Billy Man Triglyceride [Mass/Vol] 237 mg/dL Critically high <=150 [facility] Comment on above: Performed By: #### L IPID, CMP #### [facility] [address] [address] [address] Billy Man VLDL CALC 47.4 mg/dL Normal [facility] Comment on above: Performed By: #### L IPID, CMP #### [facility] [address] [address] [address] Billy Man PROF 14(COMP METB)on 023 Albumin [Mass/Vol] 3.9 g/dL Normal 3.4-5.0 [facility] Comment on above: Performed By: #### L IPID, CMP #### [facility] [address] [address] [address] Billy Man Albumin/Globulin [Mass ratio] 1.1 {ratio} Normal [facility] Comment on above: Performed By: #### L IPID, CMP #### [facility] [address] [address] [address] Billy Man ALP [Catalytic activity/Vol] 98 U/L Normal 46-116 [facility] Comment on above: Performed By: #### L IPID, CMP #### [facility] [address] [address] [address] Billy Man ALT [Catalytic activity/Vol] 35 U/L Normal 16-63 [facility] Comment on above: Performed By: #### L IPID, CMP #### [facility] [address] [address] [address] Billy Man Anion gap [Moles/Vol] 9.1 mmol/L Normal [facility] Comment on above: Performed By: #### L IPID, CMP #### [facility] [address] [address] [address] Billy Man AST [Catalytic activity/Vol] 16 U/L Normal 15-37 [facility] Comment on above: Performed By: #### L IPID, CMP #### [facility] [address] [place] [address] Dr. Billy Man Bilirubin [Mass/Vol] 0.7 mg/dL Normal 0.2-1.0 [facility] Comment on above: Performed By: #### L IPID, CMP #### [facility] [address] [place] [address] Dr. Billy Man Calcium [Mass/Vol] 9.4 mg/dL Normal 8.5-10.1 [facility] Comment on above: Performed By: #### L IPID, CMP #### [facility] [address] [place] [address] Dr. Billy Man Chloride [Moles/Vol] 102 mmol/L Normal 98-107 [facility] Comment on above: Performed By: #### L IPID, CMP #### [facility] [address] [address] [address] Billy Man CO2 [Moles/Vol] 31.9 mmol/L Normal 21.0-32.0 [facility] Comment on above: Performed By: #### L IPID, CMP #### [facility] [address] [address] [address] Billy Man Creatinine [Mass/Vol] 0.97 mg/dL Normal 0.70-1.30 [facility] Comment on above: Performed By: #### L IPID, CMP #### [facility] [address] [address] [address] Billy Man EGFR-AF SIERRA LEONEAN >60 Normal >=60 [facility] Comment on above: Performed By: #### L IPID, CMP #### [facility] [address] [address] [address] Billy Man EGFR-NON AF SIERRA LEONEAN >60 Normal >=60 [facility] Comment on above: Performed By: #### L IPID, CMP #### [facility] [address] [address] [address] Billy Man Globulin (S) [Mass/Vol] 3.7 g/dL Normal [facility] Comment on above: Performed By: #### L IPID, CMP #### [facility] [address] [address] [address] Billy Man Glucose [Mass/Vol] 186 mg/dL Critically high 74-106 [facility] Comment on above: Performed By: #### L IPID, CMP #### [facility] [address] [address] [address] Billy Man Potassium [Moles/Vol] 4.0 mmol/L Normal 3.5-5.1 [facility] Comment on above: Performed By: #### L IPID, CMP #### [facility] [address] [address] [address] Billy Man Protein [Mass/Vol] 7.6 g/dL Normal 6.4-8.2 [facility] Comment on above: Performed By: #### L IPID, CMP #### [facility] [address] [address] [address] Billy Man Sodium [Moles/Vol] 139 mmol/L Normal 136-145 [facility] Comment on above: Performed By: #### L IPID, CMP #### [facility] [address] [address] [address] Billy Man Urea nitrogen [Mass/Vol] 13.0 mg/dL Normal 7.0-18.0 [facility] Comment on above: Performed By: #### L IPID, CMP #### [facility] [address] [place], [place] [address] Dr. Billy Man Urea nitrogen/Creatinin e [Mass ratio] 13.4 mg/mg Normal [facility] Comment on above: Performed By: #### L IPID, CMP #### [facility] [address] [place], [place] [address] Dr. Billy Man GLYCOHEMOGLOBIN A1Con 2022 ADA RECOMMENDATION SEE BELOW Normal [facility] Comment on above: Result Comment: ADA RECOMMENDED LIMIT 4.0 - 6.0 ADA THERAPEUTIC TARGET < 7.0 ACTION SUGGESTED > 7.0 Performed By: #### A 1C #### [facility] [address] [address] [address] Billy Man Glucose [Mass/Vol] 157 mg/dL Normal [facility] Comment on above: Performed By: #### A 1C #### [facility] [address] [address] [address] Billy Man HbA1c (Bld) [Mass fraction] 7.1 % Critically high 4.5-6.2 [facility] Comment on above: Performed By: #### A 1C #### [facility] [address] [place] [address] Dr. Billy Man MRI KNEE RT WO CONon 022 MRI KNEE RT WO CON EXAM: MRI KNEE RT WO CON HISTORY: Pain in right knee. Acute right knee joint pain with instability. COMPARISON: None. TECHNIQUE: Multiplanar and multisequence imaging of the right knee was performed without contrast. FINDINGS: The anterior cruciate ligament, posterior cruciate ligament and collateral ligaments are intact. Intermediate signal of the patellar tendon consistent with mild tendinopathy. The distal quadriceps tendon is intact. There is a free edge and undersurface tear of the body of the medial meniscus extending into the posterior horn. There is likely an associated displaced flap fragment in the meniscal tibial recess medially located inferior to the body of the medial meniscus. There is low-grade articular cartilage loss in the medial compartment. Mild bone marrow edema involves the anteromedial aspect of the medial femoral condyle. No lateral meniscal tear is evident. The articular cartilage in the lateral compartment is intact. There is a trace joint effusion. The patellofemoral articular cartilage is intact. There is a very small Tavarez cyst. IMPRESSION: 1. There is a free edge and undersurface tear of the body of the medial meniscus extending into the posterior horn with a probable small flap fragment in the meniscotibial recess medially. There is low-grade articular cartilage loss in the medial compartment. 2. No MRI evidence of lateral meniscal tear or acute ligament tear. 3. Mild bone marrow edema in the anteromedial aspect of the medial femoral condyle suspicious for focal stress response. 4. Trace joint effusion. Electronically authenticated by: NETO GAITAN Date: 2022-08-13 16:57 Normal [facility] GLYCOHEMOGLOBIN A1Con 2021 ADA RECOMMENDATION SEE BELOW Normal [facility] Comment on above: Result Comment: ADA RECOMMENDED LIMIT 4.0 - 6.0 ADA THERAPEUTIC TARGET < 7.0 ACTION SUGGESTED > 7.0 Performed By: #### A 1C #### [facility] [address] [place] [address] Dr. Billy Man Glucose [Mass/Vol] 151 mg/dL Normal [facility] Comment on above: Performed By: #### A 1C #### [facility] [address] [address] [address] Billy Man HbA1c (Bld) [Mass fraction] 6.9 % Critically high 4.5-6.2 [facility] Comment on above: Performed By: #### A 1C #### [facility] [address] [address] [address] Billy Man CBC AUTO DIFFon 02-26-2022 BASO # 0.1 103/ul Normal 0.0-0.1 [facility] Comment on above: Performed By: #### C BC #### [facility] [address] [address] [address] Billy Man Basophils/100 WBC (Bld) 0.8 % Normal 0.2-2.0 [facility] Comment on above: Performed By: #### C BC #### [facility] [address] [place] [address] Dr. Billy Man EO # 0.2 103/ul Normal 0.0-0.7 [facility] Comment on above: Performed By: #### C BC #### [facility] [address] [place] [address] Dr. Billy Man Eosinophils/100 WBC (Bld) 3.9 % Normal 0.9-7.0 [facility] Comment on above: Performed By: #### C BC #### [facility] [address] [place] [address] Dr. Billy Man Erythrocyte distribution width (RBC) [Ratio] 11.9 % Normal 11.0-15.0 [facility] Comment on above: Performed By: #### C BC #### [facility] [address] [place] [address] Dr. Billy Man Hematocrit (Bld) [Volume fraction] 46.9 % Normal 42.0-54.0 [facility] Comment on above: Performed By: #### C BC #### [facility] [address] [place] [address] Dr. Billy Man Hemoglobin (Bld) [Mass/Vol] 15.7 g/dL Normal 14.0-18.0 [facility] Comment on above: Performed By: #### C BC #### [facility] [address] [place] [address] Dr. Billy Man IG # 0.02 10e3/ul Normal 0.00-0.03 [facility] Comment on above: Performed By: #### C BC #### [facility] [address] [place] [address] Dr. Billy Man IG % 0.3 % Normal 0.0-0.5 [facility] Comment on above: Performed By: #### C BC #### [facility] [address] [place] [address] Dr. Billy Man LYMPH # 1.8 103/ul Normal 1.2-3.8 [facility] Comment on above: Performed By: #### C BC #### [facility] [address] [place] [address] Dr. Billy Man Lymphocytes/100 WBC (Bld) 28.5 % Normal 20.5-60.0 [facility] Comment on above: Performed By: #### C BC #### [facility] [address] [place] [address] Dr. Billy Man MANUAL DIFF REQ NO Normal [facility] Comment on above: Performed By: #### C BC #### [facility] [address] [place] [address] Dr. Billy Man MCH (RBC) [Entitic mass] 30.4 pg Normal 25.9-34.0 [facility] Comment on above: Performed By: #### C BC #### [facility] [address] [place] [address] Dr. Billy Man MCHC (RBC) [Mass/Vol] 33.5 g/dL Normal 29.9-35.2 [facility] Comment on above: Performed By: #### C BC #### [facility] [address] [place] [address] Dr. Billy Man MCV (RBC) [Entitic vol] 90.9 fL Normal 80.0-94.0 [facility] Comment on above: Performed By: #### C BC #### [facility] [address] [place] [address] Dr. Billy Man MONO # 0.6 103/ul Normal 0.3-0.8 [facility] Comment on above: Performed By: #### C BC #### [facility] [address] [place] [address] Dr. Billy Man Monocytes/100 WBC (Bld) 9.1 % Normal 1.7-12.0 [facility] Comment on above: Performed By: #### C BC #### [facility] [address] [place] [address] Dr. Billy Man NEUT # 3.5 103/ul Normal 1.4-6.5 [facility] Comment on above: Performed By: #### C BC #### [facility] [address] [place] [address] Dr. Billy Man Neutrophils/100 WBC (Bld) 57.4 % Normal 43.0-75.0 [facility] Comment on above: Performed By: #### C BC #### [facility] [address] [address] [address] Billy Man Platelet mean volume (Bld) [Entitic vol] 10.1 fL Normal 9.5-13.5 [facility] Comment on above: Performed By: #### C BC #### [facility] [address] [place] [address] Dr. Billy Man PLT 233 103/ul Normal 150-450 [facility] Comment on above: Performed By: #### C BC #### [facility] [address] [place] [address] Dr. Billy Man RBC 5.16 106/ul Normal 4.70-6.10 [facility] Comment on above: Performed By: #### C BC #### [facility] [address] [place] [address] Dr. Billy Man WBC 6.1 103/ul Normal 4.0-11.0 [facility] Comment on above: Performed By: #### C BC #### [facility] [address] [place] [address] Dr. Billy Man GLYCOHEMOGLOBIN A1Con 2021 ADA RECOMMENDATION SEE BELOW Normal [facility] Comment on above: Result Comment: ADA RECOMMENDED LIMIT 4.0 - 6.0 ADA THERAPEUTIC TARGET < 7.0 ACTION SUGGESTED > 7.0 Performed By: #### A 1C #### [facility] [address] [place] [address] Dr. Billy Man Glucose [Mass/Vol] 160 mg/dL Normal [facility] Comment on above: Performed By: #### A 1C #### [facility] [address] [place] [address] Dr. Billy Man HbA1c (Bld) [Mass fraction] 7.2 % Critically high 4.5-6.2 [facility] Comment on above: Performed By: #### A 1C #### [facility] [address] [place] [address] Dr. Billy Man LIPID PROFILEon 02-26-2022 CHOL-HDL RATIO NORM SEE BELOW Normal [facility] Comment on above: Result Comment: 3.3 - 4.4 LOW RISK 4.4 - 7.1 AVERAGE RISK 7.1 - 11.0 MODERATE RISK >11.0 HIGH RISK Performed By: #### L IPID, CMP ####[facility] [address] [address]Dr. Berecaro Man Cholesterol [Mass/Vol] 171 mg/dL Normal <=200 [facility] Comment on above: Performed By: #### L IPID, CMP ####[facility] [address] [address]Dr. Berecaro Donovan Cholesterol in HDL [Mass/Vol] 55 mg/dL Normal 40-60 [facility] Comment on above: Performed By: #### L IPID, CMP ####[facility] [address] [place], [place] [address]Dr. Berecaro Donovan Cholesterol in LDL [Mass/Vol] 93.2 mg/dL Normal [facility] Comment on above: Performed By: #### L IPID, CMP ####[facility] [address] [place], [place] [address]Dr. Berecaro Donovan Cholesterol.total/ Cholesterol in HDL [Mass ratio] 3.1 {ratio} Normal [facility] Comment on above: Performed By: #### L IPID, CMP ####[facility] [address] [place], [place] [address]Dr. Berecaro Man HDL NORMAL > or = 60 mg/dl - LO W CARDIOVASCULAR RISK <40 mg/dl - HIGH CARDIOVASCULAR RISK Normal [facility] Comment on above: Performed By: #### L IPID, CMP ####[facility] [address] [place], [place] [address]Dr. Berecaro Man LDL CALC NORMAL SEE BELOW Normal [facility] Comment on above: Result Comment: <100 mg/dl OPTIMAL 100 - 129 mg/dl NEAR OR ABOVE OPTIMAL 130 - 159 mg/dl BORDERLINE HIGH 160 - 189 mg/dl HIGH >190 mg/dl VERY HIGH Performed By: #### L IPID, CMP ####[facility] [address] [place], [place] [address]Dr. Billy Man Triglyceride [Mass/Vol] 114 mg/dL Normal <=150 [facility] Comment on above: Performed By: #### L IPID, CMP ####[facility] [address] [address]Dr. Billy Man VLDL CALC 22.8 mg/dL Normal [facility] Comment on above: Performed By: #### L IPID, CMP ####[facility] [address] [address]Dr. Billy Man PROF 14(COMP METB)on 022 Albumin [Mass/Vol] 3.9 g/dL Normal 3.4-5.0 [facility] Comment on above: Performed By: #### L IPID, CMP ####[facility] [address] [place], [place] [address]Dr. Billy Man Albumin/Globulin [Mass ratio] 1.2 {ratio} Normal [facility] Comment on above: Performed By: #### L IPID, CMP ####[facility] [address] [place], [place] [address]Dr. Billy Man ALP [Catalytic activity/Vol] 86 U/L Normal 46-116 [facility] Comment on above: Performed By: #### L IPID, CMP ####[facility] [address] [place], [place] [address]Dr. Billy Man ALT [Catalytic activity/Vol] 38 U/L Normal 16-63 [facility] Comment on above: Performed By: #### L IPID, CMP ####[facility] [address] [place], [place] [address]Dr. Billy Man Anion gap [Moles/Vol] 12.5 mmol/L Normal [facility] Comment on above: Performed By: #### L IPID, CMP ####[facility] [address] [place], [place] [address]Dr. Billy Man AST [Catalytic activity/Vol] 22 U/L Normal 15-37 [facility] Comment on above: Performed By: #### L IPID, CMP ####[facility] [address] [place], [place] [address]Dr. Billy Man Bilirubin [Mass/Vol] 0.8 mg/dL Normal 0.2-1.0 [facility] Comment on above: Performed By: #### L IPID, CMP ####[facility] [address] [place], [place] [address]Dr. Billy Man Calcium [Mass/Vol] 9.1 mg/dL Normal 8.5-10.1 [facility] Comment on above: Performed By: #### L IPID, CMP ####[facility] [address] [place], [place] [address]Dr. Billy Man Chloride [Moles/Vol] 104 mmol/L Normal 98-107 [facility] Comment on above: Performed By: #### L IPID, CMP ####[facility] [address] [place], [place] [address]Dr. Billy Man CO2 [Moles/Vol] 29.0 mmol/L Normal 21.0-32.0 [facility] Comment on above: Performed By: #### L IPID, CMP ####[facility] [address] [place], [place] [address]Dr. Billy Man Creatinine [Mass/Vol] 1.02 mg/dL Normal 0.70-1.30 [facility] Comment on above: Performed By: #### L IPID, CMP ####[facility] [address] [place], [place] [address]Dr. Billy Man EGFR-AF SIERRA LEONEAN >60 Normal >=60 [facility] Comment on above: Performed By: #### L IPID, CMP ####[facility] [address] [place], [place] [address]Dr. Billy Man EGFR-NON AF SIERRA LEONEAN >60 Normal >=60 [facility] Comment on above: Performed By: #### L IPID, CMP ####[facility] [address] [place], [place] [address]Dr. Berecaro Man Globulin (S) [Mass/Vol] 3.2 g/dL Normal [facility] Comment on above: Performed By: #### L IPID, CMP ####[facility] [address] [place], [place] [address]Dr. Berecaro Donovan Glucose [Mass/Vol] 183 mg/dL Critically high 74-106 [facility] Comment on above: Performed By: #### L IPID, CMP ####[facility] [address] [address]Dr. Billy Man Potassium [Moles/Vol] 4.2 mmol/L Normal 3.5-5.1 [facility] Comment on above: Performed By: #### L IPID, CMP ####[facility] [address] [place], [place] [address]Dr. Billy Man Protein [Mass/Vol] 7.1 g/dL Normal 6.4-8.2 [facility] Comment on above: Performed By: #### L IPID, CMP ####[facility] [address] [place], [place] [address]Dr. Billy Man Sodium [Moles/Vol] 141 mmol/L Normal 136-145 [facility] Comment on above: Performed By: #### L IPID, CMP ####[facility] [address] [place], [place] [address]Dr. Billy Man Urea nitrogen [Mass/Vol] 15.0 mg/dL Normal 7.0-18.0 [facility] Comment on above: Performed By: #### L IPID, CMP ####[facility] [address] [place], [place] [address]Dr. Billy Man Urea nitrogen/Creatinin e [Mass ratio] 14.7 mg/mg Normal [facility] Comment on above: Performed By: #### L IPID, CMP ####[facility] [address] [place], [place] [address]Dr. Billy Man Vital Signs Date Time Vital Sign Value Performing Clinician Facility 09-24-2023 13:44-0500 Body height 172.7 cm Jr. Stepanic DO Work Phone: [facility] 09-24-2023 13:44-0500 Body mass index (BMI) [Ratio] 22.05 kg/m2 Jr. Stepanic DO Work Phone: [facility] 09-24-2023 13:44-0500 Body weight 65.77 kg Jr. Stepanic DO Work Phone: [facility] 07-25-2023 09:40-0500 Blood Pressure Location Jimmy ROMERO [facility] 07-25-2023 09:40-0500 Diastolic blood pressure 70 mm[Hg] Jimmy ROMERO [facility] 07-25-2023 09:40-0500 Heart rate 70 /min Jimmy ROMERO [facility] 07-25-2023 09:40-0500 Respiratory rate 16 /min Jimmy ROMERO [facility] 07-25-2023 09:40-0500 Systolic blood pressure 128 mm[Hg] Jimmy ROMERO [facility] 06-17-2022 08:22-0400 Diastolic blood pressure 90 mm[Hg] Maryam RICE [facility] 06-17-2022 08:22-0400 Mean blood pressure 108 mm[Hg] Maryam RICE [facility] 06-17-2022 08:22-0400 Systolic blood pressure 145 mm[Hg] Maryam RICE [facility] 06-17-2022 08:14-0400 Blood Pressure Location Maryam RICE [facility] 06-17-2022 08:14-0400 Diastolic blood pressure 90 mm[Hg] Maryam RICE [facility] 06-17-2022 08:14-0400 Heart rate 95 /min Maryam RICE [facility] 06-17-2022 08:0 Systolic blood pressure 150 mm[Hg] Maryam DUARTE [facility] Encounters Encounter Date Encounter Type Care Provider Facility Start: 05-24-2024 [facility] Start: 03-29-2024 ambulatory Dada Weston Facility :[facility] Start: 12-29-2023 ambulatory Dada Weston Facility :[facility] [place] Start: 11-17-2023 ambulatory Jimmy ROMERO Facili ty:[facility] [place] Start: 11-14-2023 ambulatory Jimmy ROMERO Facili ty:[id number] Start: 11-06-2023 ambulatory Jimmy ROMERO Facili ty:[id number] Start: 10-08-2023 Chart abstracting Jr. Antwan Fox DO Work Phone: [facility] Start: 10-08-2023 End: 10-08-2023 ambulatory ANTWAN ENRIQUE Not Available Start: 09-29-2023 End: 09-30-2023 ambulatory Dada Weston Facility:[facility] Nicky annalise Start: 09-24-2023 End: 09-25-2023 ambulatory ANTWAN ENRIQUE Not Available Start: 09-24-2023 End: 09-24-2023 Office outpatient visit 25 minutes Jr. Antwan Fox DO Work Phone: [facility] Comment on above: Acute pain of left k nee (Primary Dx) Start: 09-22-2023 End: 09-23-2023 ambulatory Dada Weston Facility:[facility] Nicky annalise Start: 08-20-2023 End: 08-21-2023 ambulatory Dada Weston [facility] Start: 08-20-2023 End: 08-20-2023 Lab Drop off Dada Weston [facility] Start: 07-25-2023 End: 07-26-2023 ambulatory Jimmy ROMERO Facility:[facility] Start: 07-25-2023 End: 07-25-2023 Patient encounter procedure Jimmy R KARON [facility] [place] Start: 07-11-2023 End: 07-11-2023 ambulatory Jimmy Romero Facility:[facility] Start: 07-11-2023 End: 07-12-2023 ambulatory Jimmy ROMERO [facility] Work Phone: Start: 07-11-2023 End: 07-11-2023 Departed Referred MD Jimmy Romero Work Phone: [facility] [place] Work Phone: Start: 06-23-2023 ambulatory Maryam DUARTE Facility: [place] Start: 06-02-2023 End: 06-03-2023 ambulatory Jimmy ROMERO Facility: [facility] Start: 05-20-2023 End: 05-21-2023 ambulatory Dada Weston Facility: [facility]ise Start: 05-19-2023 ambulatory Shireen L Shruti Facility: [facility] [place] Start: 05-19-2023 End: 05-20-2023 ambulatory Dada Weston Facility:[facility] Start: 05-19-2023 End: 05-19-2023 Lab Drop off Dada Weston [facility] Start: 05-14-2023 End: 05-15-2023 ambulatory Shireen L Shruti Facility: [facility] Start: 03-31-2023 End: 04-01-2023 ambulatory Dada Weston Facility: [facility] Start: 02-13-2023 End: 02-14-2023 ambulatory Shireen L Shruti Facility: [facility] Start: 02-04-2023 End: 02-04-2023 ambulatory Imad Asaad Facility:[facility] Start: 01-05-2023 End: 01-05-[address] JESUS LINDA . Facility:[facility] Start: 12-26-2022 End: 12-27-[address] JESUS LINDA . Facility:[facility] Start: 12-24-2022 ambulatory Jimmy ROMERO Facility :[facility] Start: 08-30-2022 End: 08-31-[address] JESUS LINDA . Facility:[facility] Start: 08-13-2022 End: 08-14-[address] JESUS LINDA . Facility:[facility] Start: 06-26-2022 End: 08-13-[address] JESUS LINDA . Facility:[facility] Start: 06-17-2022 End: 06-17-2022 Patient encounter procedure Maryam DUARTE [facility] Start: 05-27-2022 End: 05-28-[address] JESUS LINDA . Facility: Start: 02-26-2022 End: 02-27-[address] JESUS LINDA . Facility: Procedures Date Procedure Procedure Detail Performing Clinician Start: 09-24-2023 Arthrocentesis aspir &/inj major jt/bursa w/o JrHarjeet Fox DO Work Phone: Start: 07-11-2023 Transrectal biopsy o f prostate using ultrasound guidance Jimmy KARON Start: 01-23-2023 Colonoscopy Dada argueta Start: 05-27-[address] JESUS MARIE . Comment on above: Performed By: #### P SAD #### [facility] [address] [place] [address] Dr. Billy Man Start: 07-10-2018 Uneven venous ectasi a (morphologic abnormality) Maryam DUARTE Comment on above: EVLT of left greater saphenous vein Start: 12-01-2017 varicose vein surger y- EVLT LGSV Maryam DUARTE Start: 01-28-2012 Stripping and ligati on of saphenous vein Maryam DUARTE Comment on above: right, excision mult . varicose vein right leg Start: 08-25-1998 Arthroscopy of knee Gerson ert [facility] Comment on above: LEFT KNEE Extraction of wisdom tooth R barbi [facility] Comment on above: X4 Venous varices (disorder) Ro anabella DUARTE Plan of Treatment Date Care Activity Detail Author Start: 10-08-2023 End: 10-08-2023 Patient encounter procedure 10/08/2023 11:15 AM EST Office Visit [facility] [address] [place] [address] Jr. Antwan Fox, DO [address] [facility] [address] [place] [address] [facility] Start: 2022 Pneumococcal Vaccine: 65+ Years (2 - PCV) Pneumococcal Vaccine: 65+ Years (2 - PCV) [facility] Start: 1955 Screening for malignant neoplasm of colon [facility] XR Knee - left 1 or 2 Views XR knee 1 or 2 views left Imaging Routine Acute pain of left knee 09/24/2023 1:52 PM EST [facility] Work Phone: Immunizations Immunization Date Immunization Notes Care Provider Tatum carrizales 05-30-2023 influenza virus vacc ine, unspecified formulation Jimmy ROMERO [facility] 08-05-2022 SARS-CoV-2 (COVID-19 ) [id number] Dada Weston [facility] Comment on above: Result Comment: 2022: [id number] 07-11-2022 influenza virus vacc ine, unspecified formulation Dada Enrico [facility] 07-20-2021 SARS-CoV-2 (COVID-19 ) mRNA BNT-162b2 vax Maryam DUARTE [facility] Comment on above: Result Comment: 2021: [id number] 06-12-2021 influenza virus vacc ine, unspecified formulation Maryam Tractive [facility] 10-27-2020 SARS-CoV-2 (COVID-19 ) mRNA BNT-162b2 vax Maryam Tractive [facility] 10-06-2020 SARS-CoV-2 (COVID-19 ) mRNA BNT-162b2 vax Maryam Tractive [facility] 08-04-2020 SARS-CoV-2 (COVID-19 ) Ad26 vaccine, recombinant Maryam RICE [facility] 07-07-2020 SARS-CoV-2 (COVID-19 ) Ad26 vaccine, recombinant SOPATec [facility] 06-27-2020 influenza virus vacc ine, unspecified formulation Maryam Tractive [facility] 09-03-2016 influenza virus vacc ine, unspecified formulation Maryam Tractive [facility] 09-03-2016 pneumococcal polysaccharide vaccine, 23 valent Jimmy ROMERO [facility] Payers Date Payer Category Payer Medicare [id number] 2022 Self-pay [id number] 1957 Medicare [id number] 1955 Unknown [id number] 2.16.84 0.1.036436.3.579.2.593 1957 Unknown [id number] 2.16.84 0.1.572712.3.579.2.593 1957 Unknown [id number] 2.16.84 0.1.241529.3.579.2.593 1957 Unknown [id number] 2.16.84 0.1.314607.3.579.2.593 1957 Unknown [id number] 2.16.84 0.1.101144.3.579.2.593 1957 Unknown [id number] 2.16.84 0.1.307055.3.579.2.593 1957 Unknown [id number] 2.16.84 0.1.879512.3.579.2.593 1957 Unknown [id number] 2.16.84 0.1.440716.3.579.2.1259 1957 Unknown [id number] 2.16.84 0.1.381171.3.579.2.1259 1957 Unknown [id number] 2.16.84 0.1.821112.3.579.2.1259 1957 Unknown [id number] 2.16.8 40.1.622399.3.579.2.727 1957 Unknown [id number] 2.16.8 40.1.973295.3.579.2.727 1957 Unknown [id number] 2.16.8 40.1.832819.3.579.2.727 1957 Unknown [id number] 2.16.8 40.1.517552.3.579.2.727 1957 Unknown [id number] 2.16.8 40.1.042821.3.579.2.727 1957 Unknown [id number] 2.16.8 40.1.338961.3.579.2.72 1957 Unknown [id number] 2.16.8 40.1.570163.3.579.2.727 1957 Unknown [id number] 2.16.8 40.1.238284.3.579.2.7 1957 Unknown [id number] 2.16.8 40.1.489336.3.579.2.727 1957 Unknown [id number] 2.16.8 40.1.684534.3.579.2. 1957 Unknown [id number] 2.16.8 40.1.906091.3.579.2. 1957 Unknown [id number] 2.16.8 40.1.581560.3.579.2. 1957 Unknown [id number] 2.16.8 40.1.480509.3.579.2.7 1957 Unknown [id number] 2.16.8 40.1.085352.3.579.2. 1957 Unknown [id number] 2.16.8 40.1.838834.3.579.2. 1957 Unknown [id number] 2.16.8 40.1.908323.3.579.2.7 1957 Unknown [id number] 2.16.8 40.1.861815.3.579.2. 1957 Unknown [id number] 2.16.8 40.1.991249.3.579.2. 1957 Unknown [id number] 2.16.8 40.1.314662.3.579.2.727 Unknown [id number] [id number] Unknown [id number] 2.16.8 40.1.437973.3.579.2.531 Unknown [id number] 2.16.8 40.1.644511.3.579.2.531 Social History Date Type Detail Facility Start: 06-17-2022 End: 09-24-2023 Tobacco smoking status Never smoked tobacco (finding) [facility] Comment on above: denies tobacco use Tobacco smoking status Never [facility] [place] Comment on above: denies tobacco use Start: 09-24-2023 Sex Assigned At Male F [facility] Start: 1955 Sex Assigned At Male F [facility] Start: 09-24-2023 Tobacco use and exposure Smokeless tobacco non-user [facility] Start: 09-24-2023 Alcohol intake Current drinke r of alcohol (finding) [facility] Start: 09-24-2023 History of Social function [facility] How often to you hav e a drink containing alcohol? 2-4 times a month [facility] How many standard drinks containing alcohol do you have on a typical day? 1 or 2 [facility] How often do you hav e 6 or more drinks on 1 occasion? Never [facility] Start: 09-23-2023 Gender identity Identifies as male gender (finding) [facility] Medical Equipment Procedure Code Equipment Code Equipment Origin al Text Equipment Identifier Dates [facility] Prescription, See Instructions, 100 strip(s), 1, True Metrix self monitoring blood glucose test strips #100 Use to test once a day, Supply, 172, cm, 03/31/23 14:26:00 EDT, Height/Length Dosing, 69.5, kg, 03/31/23 14:26:00 EDT, Weight Dosing Start: 04-24-2023 [facility] Prescription, See Instructions, 100 lancet(s), 1, Lancets soft twist #100 Use to test blood sugars once a day, Supply, 172, cm, 03/31/23 14:26:00 EDT, Height/Length Dosing, 69.5, kg, 03/31/23 14:26:00 EDT, Weight Dosing Start: 04-24-2023 [facility] Prescription, See Instructions, 100 strip(s), 1, True Metrix self monitoring blood glucose test strips #100 Use to test once a day, Supply, 172, cm, 03/31/23 14:26:00 EDT, Height/Length Dosing, 69.5, kg, 03/31/23 14:26:00 EDT, Weight Dosing Start: 04-24-2023 [facility] Prescription, See Instructions, 100 lancet(s), 1, Lancets soft twist #100 Use to test blood sugars once a day, Supply, 172, cm, 03/31/23 14:26:00 EDT, Height/Length Dosing, 69.5, kg, 03/31/23 14:26:00 EDT, Weight Dosing Start: 04-24-2023 [facility] Prescription, See Instructions, 100 strip(s), 1, True Metrix self monitoring blood glucose test strips #100 Use to test once a day, Supply, 172, cm, 03/31/23 14:26:00 EDT, Height/Length Dosing, 69.5, kg, 03/31/23 14:26:00 EDT, Weight Dosing Start: 04-24-2023 [facility] Prescription, See Instructions, 100 lancet(s), 1, Lancets soft twist #100 Use to test blood sugars once a day, Supply, 172, cm, 03/31/23 14:26:00 EDT, Height/Length Dosing, 69.5, kg, 03/31/23 14:26:00 EDT, Weight Dosing Start: 04-24-2023 Functional Status Date Assessment Result Facility 07-25-2023 Functional Status N/A [facility] 06-17-2022 Functional Status N/A [facility] Clinical Notes 06-17-2022 to 10-28-2023 Jr. Antwan Fox, - 09/24/2023 1:45 PM EST Note Date & Type Note Facility 10-28-2023 Note [id number] [facility] 09-24-2023 History of Present illness Narrative Associated Order(s): L Inj/Asp: L knee Post-Procedure Diagnose(s): Acute pain of left knee Images from the original note were not included. HISTORY OF PRESENT ILLNESS: EST PT Sanket Lozada is an 68 y.o. @ male. EST PT WITH FLARE UP LT KNEE PAIN (PT WAS SEEN LAST VISIT FOR B/L KNEE 10/2021)-NOTES PAIN OFF AND ON FOR YRS-INCREASE PAIN WITH BOWLING XRAY TODAY CHANGE 09/24/23 NO MRI NO CORTISONE INJ NO MDP/PREDNISONE NO PT HX LT KNEE SCOPE 1998 DR STOREY NOTES PAIN MEDIAL KNEE- PAIN GENERALLY WITH BOWLING/KNEELING- SOME INSTABILITY- WEARS BRACE WITH BOWLING- +TYLENOL/IBUPROFEN ALLERGIES: Allergies Allergen Reactions Sulfa Antibiotics Hives and Itching Other Reaction(s): Unknown HOME MEDICATIONS: Current Outpatient Medications Medication Instructions atorvastatin (LIPITOR) 10 mg, Oral Flonase Allergy Relief 50 MCG/ACT nasal spray Nasal glipiZIDE XL (GLUCOTROL XL) 2.5 mg, Oral metFORMIN (GLUCOPHAGE) 500 mg Mobic 15 mg, Oral Multiple Vitamins-Minerals (Centrum Silver 50+Men) tablet as directed Orally PHYSICAL EXAM: Knee Musculoskeletal Exam Gait Gait is normal. Inspection Leg length disparity: no discrepancy Left Erythema: none Effusion: none Edema: none Ecchymosis: none Deformity: none Alignment: normal Previous incision: arthroscopic portals Incision: well-healed Palpation Left Left knee palpation is unremarkable. Increased warmth: none Masses: none Tenderness: present Medial joint line: mild Patella: mild Range of Motion Left Left knee range of motion is normal. Active extension: 0 Active flexion: 120 Strength Left Left knee strength is normal. Extension: 5/5. Flexion: 5/5. Instability Left Instability signs: none - stable Varus stress grade: normal Valgus stress grade: normal Anterior drawer: normal Medial Luana test: negative Lateral Luana test: negative Neurovascular Left Left knee neurovascular exam is normal. Pulses - PT: normal Posterior tibial: 2+ Capillary refill: warm and well-perfused Special Signs Left Left knee special signs are normal. Patellar apprehension: none Vitals: Body mass index is 22.05 kg/m . Tobacco Use: Low Risk (09/24/2023) Patient History Smoking Tobacco Use: Never Smokeless Tobacco Use: Never Passive Exposure: Not on file Alcohol Use: Not At Risk (09/24/2023) AUDIT-C Frequency of Alcohol Consumption: 2-4 times a month Average Number of Drinks: 1 or 2 Frequency of Binge Drinking: Never IMAGING: Orders Placed This Encounter Procedures XR knee 1 or 2 views left Order Specific Question: Reason for exam: Answer: PAIN ASSESSMENT: ICD-10-CM 1. Acute pain of left knee M25.562 XR knee 1 or 2 views left PLAN: We have answered all the patients questions and explained the patients condition, decision making and plan including the risks and benefits associated with said plan in layman''s terms in a language the patient could understand easily. If patient''s symptoms significantly worsen and they cannot get a hold of us or their family physician, we have recommended that the patient proceed to the nearest emergency department (room). Dr. Fox obtained history and examined the patient, I am acting as scribe for Dr. Fox/cate, PLAN: We have discussed (L) knee xrays with patient (and ) at bedside. After examination of his left knee today we are recommending a cortisone injection to attempt to decrease the inflammation as his right knee responded so favorably in the past. We have obtained verbal consent and injected 1mL of depo medrol in his left knee under sterile technique. We have discussed his HEP and restrictions and will see him back in 2 weeks to reassess his left knee, if exam warrants we may recommend a MRI. L Inj/Asp: L knee on 09/24/2023 2:10 PM Indications: pain Details: 21 G needle, anterolateral approach Medications: 40 mg methylPREDNISolone acetate 40 MG/ML Outcome: tolerated well, no immediate complications UTILIZING ASEPTIC TECHNIQUE PT GIVEN INJECTION IN LEFT KNEE, NEUROVASC INTACT S/P INJ, TOLERATED WELL Procedure, treatment alternatives, risks and benefits explained, specific risks discussed. Consent was given by the patient. Jalyn Reaves MA documented in this encounter [facility] 07-25-2023 Hospital Discharge instructions Patient Education 07/25/2023 10:16:36 Prostate Cancer Screening Prostate Cancer Screening Prostate cancer screening is testing that is done to check for the presence of prostate cancer in men. The prostate gland is a walnut-sized gland that is located below the bladder and in front of the rectum in males. The function of the prostate is to add fluid to semen during ejaculation. Prostate cancer is one of the most common types of cancer in men. Who should have prostate cancer screening? Screening recommendations vary based on age and other risk factors, as well as between the professional organizations who make the recommendations. In general, screening is recommended if: You are age 50 to 70 and have an average risk for prostate cancer. You should talk with your health care provider about your need for screening and how often screening should be done. Because most prostate cancers are slow growing and will not cause , screening in this age group is generally reserved for men who have a 10- to 15-year life expectancy. You are younger than age 50, and you have these risk factors: ?Having a father, brother, or uncle who has been diagnosed with prostate cancer. The risk is higher if your family member's cancer occurred at an early age or if you have multiple family members with prostate cancer at an early age. ?Being a male who is Black or is of Evgeny or sub-Saharan descent. In general, screening is not recommended if: You are younger than age 40. You are between the ages of 40 and 49 and you have no risk factors. You are 70 years of age or older. At this age, the risks that screening can cause are greater than the benefits that it may provide. If you are at high risk for prostate cancer, your health care provider may recommend that you have screenings more often or that you start screening at a younger age. How is screening for prostate cancer done? The recommended prostate cancer screening test is a blood test called the prostate-specific antigen (PSA) test. PSA is a protein that is made in the prostate. As you age, your prostate naturally produces more PSA. Abnormally high PSA levels may be caused by: Prostate cancer. An enlarged prostate that is not caused by cancer (benign prostatic hyperplasia, or BPH). This condition is very common in older men. A prostate gland infection (prostatitis) or urinary tract infection. Certain medicines such as male hormones (like testosterone) or other medicines that raise testosterone levels. A rectal exam may be done as part of prostate cancer screening to help provide information about the size of your prostate gland. When a rectal exam is performed, it should be done after the PSA level is drawn to avoid any effect on the results. Depending on the PSA results, you may need more tests, such as: A physical exam to check the size of your prostate gland, if not done as part of screening. Blood and imaging tests. A procedure to remove tissue samples from your prostate gland for testing (biopsy). This is the only way to know for certain if you have prostate cancer. What are the benefits of prostate cancer screening? Screening can help to identify cancer at an early stage, before symptoms start and when the cancer can be treated more easily. There is a small chance that screening may lower your risk of dying from prostate cancer. The chance is small because prostate cancer is a slow-growing cancer, and most men with prostate cancer from a different cause. What are the risks of prostate cancer screening? The main risk of prostate cancer screening is diagnosing and treating prostate cancer that would never have caused any symptoms or problems. This is called overdiagnosisand overtreatment. PSA screening cannot tell you if your PSA is high due to cancer or a different cause. A prostate biopsy is the only procedure to diagnose prostate cancer. Even the results of a biopsy may not tell you if your cancer needs to be treated. Slow-growing prostate cancer may not need any treatment other than monitoring, so diagnosing and treating it may cause unnecessary stress or other side effects. Questions to ask your health care provider When should I start prostate cancer screening? What is my risk for prostate cancer? How often do I need screening? What type of screening tests do I need? How do I get my test results? What do my results mean? Do I need treatment? Where to find more information The [place]: www.cancer.org [employer]: www.auanet.org Contact a health care provider if: You have difficulty urinating. You have pain when you urinate or ejaculate. You have blood in your urine or semen. You have pain in your back or in the area of your prostate. Summary Prostate cancer is a common type of cancer in men. The prostate gland is located below the bladder and in front of the rectum. This gland adds fluid to semen during ejaculation. Prostate cancer screening may identify cancer at an early stage, when the cancer can be treated more easily and is less likely to have spread to other areas of the body. The prostate-specific antigen (PSA) test is the recommended screening test for prostate cancer, but it has associated risks. Discuss the risks and benefits of prostate cancer screening with your health care provider. If you are age 70 or older, the risks that screening can cause are greater than the benefits that it may provide. This information is not intended to replace advice given to you by your health care provider. Make sure you discuss any questions you have with your health care provider. Document Revised: 02/04/2022 Document Reviewed: 02/04/2022 Elsevier Patient Education 2022 [employer]. Follow Up Care 06/02/2023 11:00:17 With:KARON DOHERTY, Jimmy Sanchez, URL Address: [address] [place] [address]- When: Unknown [facility] 06-17-2022 Hospital Discharge instructions Patient Education 06/17/2022 08:29:37 Benign Prostatic Hyperplasia Benign Prostatic Hyperplasia Benign prostatic hyperplasia (BPH) is an enlarged prostate gland that is caused by the normal aging process and not by cancer. The prostate is a walnut-sized gland that is involved in the production of semen. It is located in front of the rectum and below the bladder. The bladder stores urine and the urethra is the tube that carries the urine out of the body. The prostate may get bigger as a man gets older. An enlarged prostate can press on the urethra. This can make it harder to pass urine. The build-up of urine in the bladder can cause infection. Back pressure and infection may progress to bladder damage and kidney (renal) failure. What are the causes? This condition is part of a normal aging process. However, not all men develop problems from this condition. If the prostate enlarges away from the urethra, urine flow will not be blocked. If it enlarges toward the urethra and compresses it, there will be problems passing urine. What increases the risk? This condition is more likely to develop in men over the age of 50 years. What are the signs or symptoms? Symptoms of this condition include: Getting up often during the night to urinate. Needing to urinate frequently during the day. Difficulty starting urine flow. Decrease in size and strength of your urine stream. Leaking (dribbling) after urinating. Inability to pass urine. This needs immediate treatment. Inability to completely empty your bladder. Pain when you pass urine. This is more common if there is also an infection. Urinary tract infection (UTI). How is this diagnosed? This condition is diagnosed based on your medical history, a physical exam, and your symptoms. Tests will also be done, such as: A post-void bladder scan. This measures any amount of urine that may remain in your bladder after you finish urinating. A digital rectal exam. In a rectal exam, your health care provider checks your prostate by putting a lubricated, gloved finger into your rectum to feel the back of your prostate gland. This exam detects the size of your gland and any abnormal lumps or growths. An exam of your urine (urinalysis). A prostate specific antigen (PSA) screening. This is a blood test used to screen for prostate cancer. An ultrasound. This test uses sound waves to electronically produce a picture of your prostate gland. Your health care provider may refer you to a specialist in kidney and prostate diseases (urologist). How is this treated? Once symptoms begin, your health care provider will monitor your condition (active surveillance or watchful waiting). Treatment for this condition will depend on the severity of your condition. Treatment may include: Observation and yearly exams. This may be the only treatment needed if your condition and symptoms are mild. Medicines to relieve your symptoms, including: ?Medicines to shrink the prostate. ?Medicines to relax the muscle of the prostate. Surgery in severe cases. Surgery may include: ?Prostatectomy. In this procedure, the prostate tissue is removed completely through an open incision or with a laparoscope or robotics. ?Transurethral resection of the prostate (TURP). In this procedure, a tool is inserted through the opening at the tip of the penis (urethra). It is used to cut away tissue of the inner core of the prostate. The pieces are removed through the same opening of the penis. This removes the blockage. ?Transurethral incision (TUIP). In this procedure, small cuts are made in the prostate. This lessens the prostate's pressure on the urethra. ?Transurethral microwave thermotherapy (TUMT). This procedure uses microwaves to create heat. The heat destroys and removes a small amount of prostate tissue. ?Transurethral needle ablation (TUNA). This procedure uses radio frequencies to destroy and remove a small amount of prostate tissue. ?Interstitial laser coagulation (ILC). This procedure uses a laser to destroy and remove a small amount of prostate tissue. ?Transurethral electrovaporization (TUVP). This procedure uses electrodes to destroy and remove a small amount of prostate tissue. ?Prostatic urethral lift. This procedure inserts an implant to push the lobes of the prostate away from the urethra. Follow these instructions at home: Take delr-nqg-ootylzr and prescription medicines only as told by your health care provider. Monitor your symptoms for any changes. Contact your health care provider with any changes. Avoid drinking large amounts of liquid before going to bed or out in public. Avoid or reduce how much caffeine or alcohol you drink. Give yourself time when you urinate. Keep all follow-up visits as told by your health care provider. This is important. Contact a health care provider if: You have unexplained back pain. Your symptoms do not get better with treatment. You develop side effects from the medicine you are taking. Your urine becomes very dark or has a bad smell. Your lower abdomen becomes distended and you have trouble passing your urine. Get help right away if: You have a fever or chills. You suddenly cannot urinate. You feel lightheaded, or very dizzy, or you faint. There are large amounts of blood or clots in the urine. Your urinary problems become hard to manage. You develop moderate to severe low back or flank pain. The flank is the side of your body between the ribs and the hip. These symptoms may represent a serious problem that is an emergency. Do not wait to see if the symptoms will go away. Get medical help right away. Call your local emergency services (911 in the [place] Do not drive yourself to the hospital. Summary Benign prostatic hyperplasia (BPH) is an enlarged prostate that is caused by the normal aging process and not by cancer. An enlarged prostate can press on the urethra. This can make it hard to pass urine. This condition is part of a normal aging process and is more likely to develop in men over the age of 50 years. Get help right away if you suddenly cannot urinate. This information is not intended to replace advice given to you by your health care provider. Make sure you discuss any questions you have with your health care provider. Document Released: 08/11/2006 Document Revised: 07/06/2019 Document Reviewed: 09/15/2017 StartX Patient Education 2020 [employer]. Follow Up Care 06/11/2021 09:17:17 With:Maryam DUARTE MD, URL Address: [address] [place] [id number]- When:1 year Comments:w/ [place] [facility] Evaluation + Plan note Future Appointments Appointment Date:06/23/2023 08:00:00 AM Scheduled Provider:Maryam DUARTE MD Location:[facility] Appointment Type:URO Office Visit Diagnostic Tests PendingPSA Total 06/17/22 [facility] Evaluation + Plan note Future Appointments Appointment Date:06/02/2023 09:45:00 AM Scheduled Provider:Jimmy ROMERO MD Location:[facility] Appointment Type:URO Office Visit Appointment Date:09/29/2023 09:40:00 AM Scheduled Provider:Dada Weston MD [facility] App[facility] Type:FM Open Appointment Date:05/24/2024 08:00:00 AM Scheduled Provider: [facility] Appointment Type: Medicare Wellness Subsequent [facility] Evaluation + Plan note Future Appointments Appointment Date:09/29/2023 08:30:00 AM Scheduled Provider:Dada Weston MD [facility] Appointment Type:FM Open Appointment Date:05/24/2024 08:00:00 AM Scheduled Provider: [facility] Appointment Type:FM Medicare Wellness [facility] Evaluation + Plan note Future Appointments Appointment Date:09/29/2023 08:30:00 AM Scheduled Provider:Dada Weston MD [facility]FM Open Appointment Date:05/24/2024 08:00:00 AM Scheduled Provider: [facility] Type:FM Medicare Wellness [facility] Evaluation note No assessment inform ation available [facility] Work Phone: Evaluation note Diagnosis Acute pain of left knee- Primary [facility] Narrative No data available for this section [facility] Hospital Discharge instructions No data available for this section [facility] No data available for this section [facility] Summary Purpose Family History No Family History Records Found Relationship Condition Age at Onset Recorded Date/T ana maria brother Malignant neoplasm of prostate Unknown father Malignant neoplasm of prostate Unknown Advance Directives No Advanced Directives Records Found Advance Directive Response Recorded Date/ Time Advance Directives No January 31 7:29am Reason for Referral Specialty Diagnoses / Procedures Referred By Melissa t Referred To Contact Orthopaedic Surgery Diagnoses Acute pain of left knee Procedures L Inj/Asp: L knee Jr. Antwan Fox, DO [address] [facility] [address] [place] [address] Referral ID Status Reason Start Date Expiration Date V isits Requested Visits Authorized [id number] Pending Review 09/24/2023 03/22/2024 1 1 Additional Source Comments Patient Care team informatio n (unrecognized section and content) Team Status: Inactive Member Role Status Dates Jimmy Romero MD Attending Provider Active Computer Service Technician Relationship Specialty Start Date End Date Dada Weston MD [address] [facility] [place] [address] PCP - General Family Medicine 09/24/23 Computer Service Technician Relationship Specialty Start Date End Date Dada Weston MD [address] [facility] [place] [address] PCP - General Family Medicine 09/24/23 (unrecognized sect ion and content) No Status Records FoundNo Status Records FoundNo Status Records FoundNo Status Records Found INFORMATION SOURCE (unrecogn ized section and content) DATE CREATED AUTHOR 01/06/2023 [facility] DATE CREATED AUTHOR AUTHOR'S ORGANIZ ATION 07/23/2023 [facility] DATE CREATED AUTHOR AUTHOR'S ORGANIZ ATION 10/10/2023 [facility] DATE CREATED AUTHOR AUTHOR'S ORGANIZ ATION 10/31/2023 [facility] Goals (unrecognized section and content) Goals may be documented in a n alternate section Reason for Visit (unrecogniz ed section and content) Reason Comments Pain FOR RECORDS PERTAINING TO PATIENTS WHO ARE OR HAVE BEEN ENROLLED IN A CHEMICAL DEPENDENCY/SUBSTANCEABUSE PROGRAM, SOME INFORMATION MAY BE OMITTED. This clinical summary was aggregated from multiple sources. Caution should be exercised in using it in the provision of clinical care. This summary normalizes information from multiple sources, and as a consequence, information in this document may materially change the coding, format and clinical context of patient data. In addition, data may be omitted in some cases. CLINICAL DECISIONS SHOULD BE BASED ON THE PRIMARY CLINICAL RECORDS. [facility] [facility]. provides no warranty or guarantee of the accuracy or completeness of information in this document.
[2023-11-06 07:10] VITALS: BP 152/90; PULSE 98; RESP 18; TEMP 36.6; O2SAT 99; BMI 22.3
[2023-11-06 07:31] LABS: Glucometer 182 mg/dL (74-106)
[2023-11-06] MEDS: LACTATED RINGER'S SOLUTION 1,000 ML 50 ML IV ×2 (07:33→08:58)
[2023-11-06] MEDS: GENTAMICIN SULFATE 120 MG in 0.9 % SODIUM CHLORIDE 100 ML 206 MG IV (07:34)
--- NOTE | 2023-11-06 08:02 | US_ITS ---
[address] [address] Patient Name: SORAIDA LOZADA MRN: [id number] date: 1955 Sex: M Assigned Patient Location: [facility] Current Patient Location: Accession/Order Number: [id number] Exam Date: 11/06/2023 08:02 Report Date: 11/07/2023 07:02 At the request of: CARMEN ROMERO Procedure: US prostate EXAMINATION: US prostate HISTORY: TRUS BIOPSY COMPARISON: No relevant comparison available. TECHNIQUE: Ultrasound exam for the prostate with an endorectal transducer was performed utilizing real-time and color duplex Doppler sonography. FINDINGS: ESTIMATED SIZE: 4.0 x 4.1 x 2.6 cm (22.3 cc) APPEARANCE: Heterogeneous prostate. OTHER: Ultrasound-guided prostate biopsy performed by Dr. Romero with 13 tissue samples obtained. US/US prostate IMPRESSION: 1. Ultrasound-guided prostate biopsy performed by Dr. Romero. Electronically authenticated by: ROCCO BONILLA Date: 11/07/2023 07:02
[2023-11-06] MEDS: LIDOCAINE 2% JELLY 20 ML UR (08:08)
[2023-11-06] MEDS: CEFAZOLIN SODIUM/DEXTROSE,ISO 1 GM/50 ML IV.SOLN IV (08:23)
[2023-11-06 08:25] VITALS: BP 97/54; PULSE 93; RESP 14; TEMP 36.7; O2SAT 94
--- NOTE | 2023-11-06 08:29 | PM.URSON ---
Urology Surgery Operative Note Operative Note Procedure Date: 11/06/23 Time Out Performed: yes Pre-op Diagnosis: Elevated PSA and LISSETTE from prior biopsy. Post-op Diagnosis: same as pre-op Procedures performed: 1. Transrectal ultrasound of the prostate. 2. Prostate needle biopsies. Anesthesia: MAC and local Primary Surgeon: Jimmy Romero Complications: None Estimated blood loss (mL): 20 Findings: Central calcifications. Specimens: Prostate needle biopsies. Indications for Procedures: This gentleman has a family history of prostate cancer along with an elevated PSA. He underwent prostate needle biopsy in June 2023. The path revealed LISSETTE on the right side near the apex. He now presents for a repeat prostate needle biopsy. He has signed an informed consent for this procedure after all risks were explained. Some of these include bleeding, infection, urosepsis and anesthesia to name a few. Detailed description of Procedure: The patient was brought to the endoscopy suite and kept on his [facility] bed in the left lateral decubitus position. MAC anesthesia was administered after timeout was done by all parties in the room. 2% lidocaine gel was passed per rectum. The ultrasound probe was passed per rectum. The prostate was scanned in the transverse and longitudinal views. The volume was calculated to be 23 g. Central calcifications were noted. While in sagittal view we began taking biopsies from the left base going towards the apex. We divided up into 4 levels and from each level took 2 biopsies. On the right side we did a similar maneuver for the first and second levels. At levels 3 and 4 we took 4 biopsies and 5 biopsies respectively. We had 8 biopsies from the left side and 13 biopsies from the right side. The probe was removed. He was then rotated in the supine position. He was then transferred to PACU in stable condition. He and his have been instructed that he needs to finish his oral quinolone antibiotic course.
[2023-11-06 08:40] VITALS: BP 107/56; PULSE 91; RESP 18; O2SAT 96
[2023-11-06 08:55] VITALS: BP 134/78; PULSE 84; RESP 18; O2SAT 99
[2023-11-06 09:25] VITALS: BP 124/68; PULSE 78; RESP 18; O2SAT 99
--- NOTE | 2023-11-06 09:43 | PC.NURSE ---
0925: pt voids without difficulty
== END 2023-11-06 09:45 | disposition home or self-care (01) ==
PROVIDERS: PCP Family Medicine; Visit Provider Urology
PROC: (CPT 55700; principal; 2023-11-06 08:00)
DX: C61 Malignant neoplasm of prostate (principal); R97.20 Elevated prostate specific antigen [PSA]; Z80.42 Family history of malignant neoplasm of prostate; R31.9 Hematuria, unspecified; E11.9 Type 2 diabetes mellitus without complications; N42.32 Atypical small acinar proliferation of prostate; Z86.16 Personal history of COVID-19; E78.00 Pure hypercholesterolemia, unspecified; Z79.84 Long term (current) use of oral hypoglycemic drugs; R31.29 Other microscopic hematuria; R39.89 Other symptoms and signs involving the genitourinary system
CPT/HCPCS: 55700; 36415; 76872; 82948; 88305; 88344; 99999; J2704